=== PATIENT | female | born 1935 | race Caucasian/White ===

== ENCOUNTER 2017-06-23 14:33 | Inpatient (IN) | payer OTHER ==
[~2017-06-23] VITALS: Ht 152.4 cm; Wt 94.9 kg
[2017-06-23 14:42] VITALS: BP 115/66
[2017-06-23] MEDS ORDERED: FURO40TA4 PO (15:55)
[2017-06-23] MEDS ORDERED: METH5TAB6 PO (15:55)
[2017-06-23] MEDS ORDERED: OMEP20CA9 PO (15:55)
[2017-06-23] MEDS ORDERED: DILT120C80 PO (15:55)
[2017-06-23] MEDS ORDERED: APIX5TAB3 PO (15:55)
[2017-06-23] MEDS ORDERED: ATOR20TA PO (15:55)
[2017-06-23] MEDS ORDERED: GABA-586 PO (15:55)
[2017-06-23] MEDS ORDERED: SITA50TA PO (15:55)
[2017-06-23] MEDS ORDERED: METO25TA2 PO (15:55)
[2017-06-23] MEDS ORDERED: LEVO25TA4 PO (15:55)
[2017-06-23] MEDS ORDERED: LOSA100T6 PO (15:55)
[2017-06-23 16:20] LABS: BASO # 0.1 x10^3/uL (0.0-0.2); BASO % 1 % (0-3); EOS # 0.2 x10^3/uL (0.0-0.7); EOS % 4 % (0-3); HEMATOCRIT 34.4 % (36.0-47.0); HEMOGLOBIN 10.9 g/dL (12.0-15.5); LYMPH % 37 % (24-48); MEAN CORPUSCULAR HEMOGLOBIN 28 pg (25-35); MEAN CORPUSCULAR HGB CONC 32 g/dL (31-37); MEAN CORPUSCULAR VOLUME 88 fL (79-100); MONO # 0.6 x10^3/uL (0.0-1.1); MONO % 11 % (0-9); NEUT # 2.5 x10^3uL (1.8-7.7); NEUT % 47 % (31-73); PLATELET COUNT 206 x10^3/uL (140-400); RED BLOOD COUNT 3.91 x10^6/uL (3.50-5.40); RED CELL DISTRIBUTION WIDTH 15.2 % (11.5-14.5); WHITE BLOOD COUNT 5.4 x10^3/uL (4.0-11.0)
[2017-06-23] MEDS: IV NORMAL SALINE 1,000ML 1,000 ML IV SCH (16:25)
[2017-06-23 16:46] LABS: ALBUMIN 3.4 g/dL (3.4-5.0); CALCIUM 7.2 mg/dL (8.5-10.1); CREATININE 4.5 mg/dL (0.6-1.0); GFR 9.4; MAGNESIUM 2.1 mg/dL (1.8-2.4); POTASSIUM 3.5 mmol/L (3.5-5.1); TOTAL BILIRUBIN 0.3 mg/dL (0.2-1.0); TOTAL PROTEIN 6.8 g/dL (6.4-8.2)
[2017-06-23] MEDS ORDERED: DEXTROSE 50% 25 GM / 50ML DISP.SYRIN. IV PRN (17:00)
[2017-06-23] MEDS ORDERED: INSU100I13 SQ (19:20)
[2017-06-23 19:30] VITALS: BP 114/56
[2017-06-23] MEDS: GABAPENTIN 300 MG CAPSULE. PO SCH (20:41)
[2017-06-23] MEDS: APIXABAN 5 MG TABLET. PO SCH (20:43)
[2017-06-23] MEDS: INSULIN DETEMIR 300 UNITS/3 ML INSULN.PEN. SQ SCH (20:45)
[2017-06-23] MEDS ORDERED: APIXABAN 5 MG TABLET. PO SCH (21:00)
[2017-06-23 23:05] VITALS: BP 92/54
[2017-06-24] MEDS ORDERED: ACETAMINOPHEN 325 MG TABLET PO PRN (01:00)
[2017-06-24] MEDS: IV NORMAL SALINE 1,000ML 1,000 ML IV SCH ×3 (02:00→20:37)
[2017-06-24 05:13] VITALS: BP 118/56
[2017-06-24 06:11] LABS: ALBUMIN/GLOBULIN RATIO 0.9 (1.0-1.7); CALCIUM 6.8 mg/dL (8.5-10.1); CREATININE 3.9 mg/dL (0.6-1.0); GFR 11.1; POTASSIUM 4.1 mmol/L (3.5-5.1); TOTAL BILIRUBIN 0.3 mg/dL (0.2-1.0); TOTAL PROTEIN 6.2 g/dL (6.4-8.2)
[2017-06-24 06:12] LABS: BASO # 0.1 x10^3/uL (0.0-0.2); BASO % 2 % (0-3); EOS # 0.2 x10^3/uL (0.0-0.7); EOS % 4 % (0-3); HEMATOCRIT 31.7 % (36.0-47.0); LYMPH # 2.2 x10^3/uL (1.0-4.8); LYMPH % 42 % (24-48); MEAN CORPUSCULAR HEMOGLOBIN 28 pg (25-35); MEAN CORPUSCULAR HGB CONC 32 g/dL (31-37); MEAN CORPUSCULAR VOLUME 87 fL (79-100); MONO # 0.6 x10^3/uL (0.0-1.1); MONO % 12 % (0-9); NEUT # 2.1 x10^3uL (1.8-7.7); NEUT % 41 % (31-73); PLATELET COUNT 188 x10^3/uL (140-400); RED BLOOD COUNT 3.63 x10^6/uL (3.50-5.40); RED CELL DISTRIBUTION WIDTH 14.8 % (11.5-14.5); WHITE BLOOD COUNT 5.2 x10^3/uL (4.0-11.0)
[2017-06-24] MEDS ORDERED: LEVOTHYROXINE 25 MCG TABLET. PO SCH (07:00)
[2017-06-24] MEDS ORDERED: CALCIUM CARBONATE 500 MG TABLET PO SCH (09:00)
[2017-06-24] MEDS: GABAPENTIN 300 MG CAPSULE. PO SCH ×2 (09:52→20:37)
[2017-06-24] MEDS: APIXABAN 5 MG TABLET. PO SCH ×2 (09:53→20:38)
[2017-06-24] MEDS: LINAGLIPTIN 5 MG TABLET PO SCH (09:56)
[2017-06-24] MEDS: LOSARTAN 50 MG TABLET. PO SCH (09:57)
[2017-06-24] MEDS: ATORVASTATIN CALCIUM 20 MG TABLET PO SCH (09:57)
[2017-06-24] MEDS: PANTOPRAZOLE 40 MG TABLET. PO SCH (09:58)
[2017-06-24] MEDS: METOPROLOL SUCC 24HR ER 25 MG TAB.ER.24H. PO SCH (09:58)
--- NOTE | 2017-06-24 10:31 | RAD ---
Bilateral renal ultrasound 06/24/2017 Clinical indication: Renal failure. Comparison: None. Findings: Examination is significant limited due to body habitus. Right kidney measures 11.1 cm in length with diffuse cortical thinning. There is a simple appearing cyst from the superior pole of the right kidney measuring up to 3.2 cm. No right renal collecting system dilatation. Left kidney measures 10.7 cm in length with diffuse cortical thinning and no evidence for collecting system dilatation. The partially distended urinary bladder is unremarkable. Impression: 1. Limited examination due to body habitus. 2. Both kidneys present with bilateral cortical thinning. 3. No hydronephrosis. 4. Small simple appearing 3.2 cm right renal cyst.
[2017-06-24 10:56] VITALS: BP 143/74
--- NOTE | 2017-06-24 13:58 | PDOC1 ---
History of Present Illness Reason for Visit: Renal failure History of Present Illness Pt admitted directly from office yesterday due to acute renal failure. Her creatinine had gone from 1.5 on 05/30 to 2.25 on 06/20 to 4.5 on 06/23. She had been on double dose of diuretic since May. She denied vomiting, diarrhea, or decreased voiding. She was down 9 lbs and her SOA had resolved. She was being treated for diastolic heart failure. Today she is feeling well. States she is voiding frequently. Denies SOA or excessive fluid retention. Denies fever, CP, abd pain, n/v, diarrhea, rash, or dizziness. Denies tetany or confusion. Chief Complaint: Renal failure Allergies: Coded Allergies: Influenza Virus Vaccines (Verified Allergy, Unknown, 06/23/17) Past Medical History Cardiac: AFIB, CHF (diastolic, chronic), HTN, hyperipidemia Pulmonary: Other (Pulmonary hypertension) Heme/Onc: Anemia NOS Musculoskeletal: Osteoarthritis Renal/: Chronic renal insuff Endocrine: Hyperthyroidism (Multinodular goiter, dx 2014, on methimazole) Past Surgical History: No pertinent history Family History: No pertinent hx Past Social History Smoke: No Alcohol: none Drugs: None Lives: with Family Review of Systems Review Of Systems Fourteen system , review of systems has been reviewed. See HPI for pertinent positives and negative responses, other carrillo all other systems are negative, non pertinent or non contributory Allergies: Coded Allergies: Influenza Virus Vaccines (Verified Allergy, Unknown, 06/23/17) Medications Current Medications Sodium Chloride 1,000 ml @ 100 mls/hr Q10H IV Last administered on 06/24/17at 11:45; Start 06/23/17 at 15:45 Apixaban (Eliquis) 5 mg BID PO ; Start 06/23/17 at 21:00; Stop 06/23/17 at 21:00 ; Status DC Atorvastatin Calcium (Lipitor) 40 mg DAILY PO Last administered on 06/24/17at 09 :57; Start 06/24/17 at 09:00 Diltiazem HCl (Cardizem 24hr Cd) 120 mg DAILY PO Last administered on at 09:57; Start 06/24/17 at 09:00 Gabapentin (Neurontin) 300 mg BID PO Last administered on 06/24/17at 09:52; Start 06/23/17 at 21:00 Levothyroxine Sodium (Synthroid) 25 mcg DAILY07 PO ; Start 06/24/17 at 07:00; Stop 06/24/17 at 07:00; Status DC Methimazole (Tapazole) 5 mg DAILY PO Last administered on 06/24/17at 09:53; Start 06/24/17 at 09:00 Metoprolol Succinate (Toprol Xl) 25 mg DAILY PO Last administered on 06/24/17at 09:58; Start 06/24/17 at 09:00 Losartan Potassium (Cozaar) 100 mg DAILY PO Last administered on 06/24/17at 09: 57; Start 06/24/17 at 09:00 Pantoprazole Sodium (Protonix) 40 mg DAILY PO Last administered on 06/24/17at 09 :58; Start 06/24/17 at 09:00 Linagliptin (Tradjenta) 5 mg DAILY PO Last administered on 06/24/17at 09:56; Start 06/24/17 at 09:00 Dextrose 12.5 gm PRN Q15MIN PRN IV SEE COMMENTS; Start 06/23/17 at 17:00 Insulin Detemir (Levemir) 12 units QHS SQ Last administered on 06/23/17at 20:45 ; Start 06/23/17 at 21:00 Apixaban (Eliquis) 2.5 mg BID PO Last administered on 06/24/17at 09:53; Start at 21:00 Acetaminophen (Tylenol) 650 mg PRN Q4HRS PRN PO PAIN; Start 06/24/17 at 01:00 Calcium Carbonate/ Glycine (Oscal) 500 mg TIDAFTMEAL PO Last administered on at 09:58; Start 06/24/17 at 09:00 Active Scripts Active Reported Lantus Solostar (Insulin Glargine,Hum.rec.anlog) 100 Unit/1 Ml Insuln.pen 12 Unit SQ QHS Toprol Xl (Metoprolol Succinate) 25 Mg Tab.er.24h 1 Tab PO DAILY Omeprazole 20 Mg Capsule.dr 1 Cap PO DAILY Methimazole 5 Mg Tablet 5 Mg PO DAILY Januvia (Sitagliptin Phosphate) 50 Mg Tablet 1 Tab PO DAILY Furosemide 40 Mg Tablet 1 Tab PO DAILY Levothyroxine Sodium 25 Mcg Tablet 1 Tab PO DAILY Lipitor (Atorvastatin Calcium) 20 Mg Tablet 2 Tab PO DAILY Losartan Potassium 100 Mg Tablet 100 Mg PO DAILY Eliquis (Apixaban) 5 Mg Tablet 5 Mg PO BID Diltiazem 24HR Cd (Diltiazem Hcl) 120 Mg Cap.er.24h 1 Cap PO DAILY Gabapentin 300 Mg Capsule 300 Mg PO BID Exam Vital Signs Vital Signs Date Time Temp Pulse Resp B/P (MAP) Pulse Ox O2 Delivery O2 Flow Rate FiO2 06/24/17 10:56 97.8 68 16 143/74 (97) 100 06/24/17 08:00 Nasal Cannula 2.0 General Appearance: Alert, Oriented X3, Cooperative, No acute distress HEENT: Atraumatic, PERRLA, EOMI, Mucous membr. moist/pink, Other (No JVD, no LAD, no obvious thyroid nodules) Respiratory: Clear to auscultation, Normal air movement Heart: Other (Irregularly irregular, no murmur) Abdominal: Soft, No tenderness, No hepatospenomegaly, No masses Extremities: Normal pulses, Other (Trace BLE edema) Skin: No rashes, No breakdown Neuro: Normal speech, Strength at 5/5 X4 ext, Normal tone, Sensation intact, Cranial nerves 3-12 NL, Reflexes 2+ Psych/Mental Status: Mental status NL, Mood NL Assessment/Plan Assessment/Plan 1. Acute on chronic renal failure: Likely ATN due to overdiuresis. Baseline creat 1.5 (stage 3 CKD). Will address hyperphosphatemia, hypocalcemia. Recheck BMP later today and in AM. Continue IVF. Will have to balance renal function with fluid retention. Would like to get creat to 2.5 at least by discharge, plan for tomorrow if all goes well. Urine sodium/creat pending. 2. Atrial fibrillation: Pt on Eliquis for stroke prevention. I decreased the dose to 2.5 mg daily due to pt's renal function and age. 3. HTN: Continue home medications. 4. DM2: Continue home medications. 5. DVT prohp: Pt already on Eliquis. 6. Hyperthyroidism: T4 is normal. Continue methimazole. 7. Anemia: Chronic, stable. Continue to monitor. COURSE Allergies Coded Allergies Type Severity Reaction Last Updated Verified Influenza Virus Vaccines Allergy Unknown 06/23/17 Yes Laboratory Tests Test 1/12/18 16:02 06/23/17 16:04 06/23/17 16:50 06/23/17 19:52 Free Thyroxine 0.86 ng/dL (0.76-1.46) White Blood Count 5.4 x10^3/uL (4.0-11.0) Red Blood Count 3.91 x10^6/uL (3.50-5.40) Hemoglobin 10.9 g/dL (12.0-15.5) Hematocrit 34.4 % (36.0-47.0) Mean Corpuscular Volume 88 fL (79-100) Mean Corpuscular Hemoglobin 28 pg (25-35) Mean Corpuscular Hemoglobin Concent 32 g/dL (31-37) Red Cell Distribution Width 15.2 % (11.5-14.5) Platelet Count 206 x10^3/uL (140-400) Neutrophils (%) (Auto) 47 % (31-73) Lymphocytes (%) (Auto) 37 % (24-48) Monocytes (%) (Auto) 11 % (0-9) Eosinophils (%) (Auto) 4 % (0-3) Basophils (%) (Auto) 1 % (0-3) Neutrophils # (Auto) 2.5 x10^3uL (1.8-7.7) Lymphocytes # (Auto) 2.0 x10^3/uL (1.0-4.8) Monocytes # (Auto) 0.6 x10^3/uL (0.0-1.1) Eosinophils # (Auto) 0.2 x10^3/uL (0.0-0.7) Basophils # (Auto) 0.1 x10^3/uL (0.0-0.2) Sodium Level 140 mmol/L (136-145) Potassium Level 3.5 mmol/L (3.5-5.1) Chloride Level 104 mmol/L (98-107) Carbon Dioxide Level 24 mmol/L (21-32) Anion Gap 12 (6-14) Blood Urea Nitrogen 48 mg/dL (7-20) Creatinine 4.5 mg/dL (0.6-1.0) Estimated GFR (Cockcroft-Gault) 9.4 BUN/Creatinine Ratio 11 (6-20) Glucose Level 180 mg/dL (70-99) Calcium Level 7.2 mg/dL (8.5-10.1) Magnesium Level 2.1 mg/dL (1.8-2.4) Total Bilirubin 0.3 mg/dL (0.2-1.0) Aspartate Amino Transf (AST/SGOT) 27 U/L (15-37) Alanine Aminotransferase (ALT/SGPT) 31 U/L (14-59) Alkaline Phosphatase 72 U/L (46-116) Total Protein 6.8 g/dL (6.4-8.2) Albumin 3.4 g/dL (3.4-5.0) Albumin/Globulin Ratio 1.0 (1.0-1.7) Glucose (Fingerstick) 120 mg/dL (70-99) 131 mg/dL (70-99) Test 06/24/17 05:40 06/24/17 07:59 White Blood Count 5.2 x10^3/uL (4.0-11.0) Red Blood Count 3.63 x10^6/uL (3.50-5.40) Hemoglobin 10.0 g/dL (12.0-15.5) Hematocrit 31.7 % (36.0-47.0) Mean Corpuscular Volume 87 fL (79-100) Mean Corpuscular Hemoglobin 28 pg (25-35) Mean Corpuscular Hemoglobin Concent 32 g/dL (31-37) Red Cell Distribution Width 14.8 % (11.5-14.5) Platelet Count 188 x10^3/uL (140-400) Neutrophils (%) (Auto) 41 % (31-73) Lymphocytes (%) (Auto) 42 % (24-48) Monocytes (%) (Auto) 12 % (0-9) Eosinophils (%) (Auto) 4 % (0-3) Basophils (%) (Auto) 2 % (0-3) Neutrophils # (Auto) 2.1 x10^3uL (1.8-7.7) Lymphocytes # (Auto) 2.2 x10^3/uL (1.0-4.8) Monocytes # (Auto) 0.6 x10^3/uL (0.0-1.1) Eosinophils # (Auto) 0.2 x10^3/uL (0.0-0.7) Basophils # (Auto) 0.1 x10^3/uL (0.0-0.2) Sodium Level 141 mmol/L (136-145) Potassium Level 4.1 mmol/L (3.5-5.1) Chloride Level 107 mmol/L (98-107) Carbon Dioxide Level 23 mmol/L (21-32) Anion Gap 11 (6-14) Blood Urea Nitrogen 45 mg/dL (7-20) Creatinine 3.9 mg/dL (0.6-1.0) Estimated GFR (Cockcroft-Gault) 11.1 BUN/Creatinine Ratio 12 (6-20) Glucose Level 110 mg/dL (70-99) Calcium Level 6.8 mg/dL (8.5-10.1) Magnesium Level 2.0 mg/dL (1.8-2.4) Total Bilirubin 0.3 mg/dL (0.2-1.0) Aspartate Amino Transf (AST/SGOT) 26 U/L (15-37) Alanine Aminotransferase (ALT/SGPT) 26 U/L (14-59) Alkaline Phosphatase 61 U/L (46-116) Total Protein 6.2 g/dL (6.4-8.2) Albumin 3.0 g/dL (3.4-5.0) Albumin/Globulin Ratio 0.9 (1.0-1.7) Ionized Calcium 0.99 mmol/L (1.13-1.32) Phosphorus Level 5.1 mg/dL (2.6-4.7) Current Medications Medications (Trade) Dose Ordered Sig/Ike Route PRN Reason Start Time Stop Time Status Last Admin Dose Admin Sodium Chloride 1,000 ml @ 100 mls/hr Q10H IV 06/23/17 15:45 06/24/17 11:45 Apixaban (Eliquis) 5 mg BID PO 06/23/17 21:00 06/23/17 21:00 DC Atorvastatin Calcium (Lipitor) 40 mg DAILY PO 06/24/17 09:00 06/24/17 09:57 Diltiazem HCl (Cardizem 24hr Cd) 120 mg DAILY PO 06/24/17 09:00 06/24/17 09:57 Gabapentin (Neurontin) 300 mg BID PO 06/23/17 21:00 06/24/17 09:52 Levothyroxine Sodium (Synthroid) 25 mcg DAILY07 PO 06/24/17 07:00 06/24/17 07:00 DC Methimazole (Tapazole) 5 mg DAILY PO 06/24/17 09:00 06/24/17 09:53 Metoprolol Succinate (Toprol Xl) 25 mg DAILY PO 06/24/17 09:00 06/24/17 09:58 Losartan Potassium (Cozaar) 100 mg DAILY PO 06/24/17 09:00 06/24/17 09:57 Pantoprazole Sodium (Protonix) 40 mg DAILY PO 06/24/17 09:00 06/24/17 09:58 Linagliptin (Tradjenta) 5 mg DAILY PO 06/24/17 09:00 06/24/17 09:56 Dextrose 12.5 gm PRN Q15MIN PRN IV SEE COMMENTS 06/23/17 17:00 Insulin Detemir (Levemir) 12 units QHS SQ 06/23/17 21:00 06/23/17 20:45 Apixaban (Eliquis) 2.5 mg BID PO 06/23/17 21:00 06/24/17 09:53 Acetaminophen (Tylenol) 650 mg PRN Q4HRS PRN PO PAIN 06/24/17 01:00 Calcium Carbonate/ Glycine (Oscal) 500 mg TIDAFTMEAL PO 06/24/17 09:00 06/24/17 09:58 I & O 06/24/17 00:00 Intake Total 380 ml Output Total 300 ml Balance 80 ml Vital Signs Date Time Temp Pulse Resp B/P (MAP) Pulse Ox O2 Delivery O2 Flow Rate FiO2 06/24/17 10:56 97.8 68 16 143/74 (97) 100 06/24/17 08:00 Nasal Cannula 2.0 Bilateral renal ultrasound 06/24/2017 Clinical indication: Renal failure. Comparison: None. Findings: Examination is significant limited due to body habitus. Right kidney measures 11.1 cm in length with diffuse cortical thinning. There is a simple appearing cyst from the superior pole of the right kidney measuring up to 3.2 cm. No right renal collecting system dilatation. Left kidney measures 10.7 cm in length with diffuse cortical thinning and no evidence for collecting system dilatation. The partially distended urinary bladder is unremarkable. Impression: 1. Limited examination due to body habitus. 2. Both kidneys present with bilateral cortical thinning. 3. No hydronephrosis. 4. Small simple appearing 3.2 cm right renal cyst. ALLEN KAMARA MD Jun 24, 2017 13:58
[2017-06-24 15:08] LABS: CALCIUM 7.1 mg/dL (8.5-10.1); CREATININE 3.4 mg/dL (0.6-1.0); POTASSIUM 4.4 mmol/L (3.5-5.1)
[2017-06-24 15:29] VITALS: BP 117/54
[2017-06-24] MEDS: CALCIUM ACETATE 667 MG CAPSULE PO SCH (18:41)
--- NOTE | 2017-06-24 18:55 | EKG ---
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
[2017-06-24 19:21] VITALS: BP 116/56
[2017-06-24] MEDS: INSULIN DETEMIR 300 UNITS/3 ML INSULN.PEN. SQ SCH (20:47)
[2017-06-24 22:29] VITALS: BP 146/54
[2017-06-25 05:40] VITALS: BP 147/63
[2017-06-25 06:53] LABS: BASO # 0.1 x10^3/uL (0.0-0.2); BASO % 1 % (0-3); EOS # 0.2 x10^3/uL (0.0-0.7); EOS % 4 % (0-3); HEMATOCRIT 33.4 % (36.0-47.0); HEMOGLOBIN 10.7 g/dL (12.0-15.5); LYMPH % 39 % (24-48); MEAN CORPUSCULAR HEMOGLOBIN 28 pg (25-35); MEAN CORPUSCULAR HGB CONC 32 g/dL (31-37); MEAN CORPUSCULAR VOLUME 87 fL (79-100); MONO # 0.5 x10^3/uL (0.0-1.1); MONO % 11 % (0-9); NEUT # 2.3 x10^3uL (1.8-7.7); NEUT % 45 % (31-73); PLATELET COUNT 199 x10^3/uL (140-400); RED BLOOD COUNT 3.84 x10^6/uL (3.50-5.40); RED CELL DISTRIBUTION WIDTH 15.2 % (11.5-14.5)
[2017-06-25 07:00] LABS: CALCIUM 7.8 mg/dL (8.5-10.1); CREATININE 2.9 mg/dL (0.6-1.0); GFR 15.6
[2017-06-25] MEDS: ATORVASTATIN CALCIUM 20 MG TABLET PO SCH (07:58)
[2017-06-25] MEDS: METOPROLOL SUCC 24HR ER 25 MG TAB.ER.24H. PO SCH (07:58)
[2017-06-25] MEDS: GABAPENTIN 300 MG CAPSULE. PO SCH (07:58)
[2017-06-25 07:59] VITALS: BP 147/63
[2017-06-25] MEDS: LOSARTAN 50 MG TABLET. PO SCH (07:59)
[2017-06-25] MEDS: PANTOPRAZOLE 40 MG TABLET. PO SCH (07:59)
[2017-06-25] MEDS: LINAGLIPTIN 5 MG TABLET PO SCH (07:59)
[2017-06-25] MEDS: APIXABAN 5 MG TABLET. PO SCH (08:00)
[2017-06-25] MEDS: CALCIUM ACETATE 667 MG CAPSULE PO SCH ×2 (08:00→12:13)
[2017-06-25] MEDS: IV NORMAL SALINE 1,000ML 1,000 ML IV SCH (12:13)
[2017-06-25] MEDS ORDERED: APIX5TAB3 PO (14:37)
--- NOTE | 2017-06-25 14:41 | DISCH ---
DISCHARGE INSTRUCTIONS-DC Condition on Discharge Condition on Discharge: Stable Problems: Activity after Discharge Activity Instructions for Disc: Activity as tolerated Checks after Discharge Checks after discharge: Check blood press - daily, Weigh Yourself Daily Contacting the DRIsaiah after DC Call your doctor for: If your condition worsens Follow-Up Follow up with: Dr. Kamara next week ALLEN KAMARA MD Jun 25, 2017 14:41
--- NOTE | 2017-06-25 14:49 | PDOC3 ---
Discharge Summary Discharge Summary Date of Admission Date of Admission: Jun 23, 2017 at 14:33 Admitting Diagnosis Acute on chronic renal failure due to ATN and hypovolemia DM2 HTN Pulmonary hypertension Diastolic HF, chronic, stable Hyperthyroidism Date of Discharge: Jun 25, 2017 Discharge Diagnosis Acute on chronic renal failure due to ATN and hypovolemia DM2 HTN Pulmonary hypertension Diastolic HF, chronic, stable Hyperthyroidism Laboratory Findings Laboratory Tests Test 06/23/17 16:02 06/23/17 16:04 06/23/17 16:50 06/23/17 19:52 Free Thyroxine 0.86 ng/dL (0.76-1.46) White Blood Count 5.4 x10^3/uL (4.0-11.0) Red Blood Count 3.91 x10^6/uL (3.50-5.40) Hemoglobin 10.9 g/dL (12.0-15.5) Hematocrit 34.4 % (36.0-47.0) Mean Corpuscular Volume 88 fL (79-100) Mean Corpuscular Hemoglobin 28 pg (25-35) Mean Corpuscular Hemoglobin Concent 32 g/dL (31-37) Red Cell Distribution Width 15.2 % (11.5-14.5) Platelet Count 206 x10^3/uL (140-400) Neutrophils (%) (Auto) 47 % (31-73) Lymphocytes (%) (Auto) 37 % (24-48) Monocytes (%) (Auto) 11 % (0-9) Eosinophils (%) (Auto) 4 % (0-3) Basophils (%) (Auto) 1 % (0-3) Neutrophils # (Auto) 2.5 x10^3uL (1.8-7.7) Lymphocytes # (Auto) 2.0 x10^3/uL (1.0-4.8) Monocytes # (Auto) 0.6 x10^3/uL (0.0-1.1) Eosinophils # (Auto) 0.2 x10^3/uL (0.0-0.7) Basophils # (Auto) 0.1 x10^3/uL (0.0-0.2) Sodium Level 140 mmol/L (136-145) Potassium Level 3.5 mmol/L (3.5-5.1) Chloride Level 104 mmol/L (98-107) Carbon Dioxide Level 24 mmol/L (21-32) Anion Gap 12 (6-14) Blood Urea Nitrogen 48 mg/dL (7-20) Creatinine 4.5 mg/dL (0.6-1.0) Estimated GFR (Cockcroft-Gault) 9.4 BUN/Creatinine Ratio 11 (6-20) Glucose Level 180 mg/dL (70-99) Calcium Level 7.2 mg/dL (8.5-10.1) Magnesium Level 2.1 mg/dL (1.8-2.4) Total Bilirubin 0.3 mg/dL (0.2-1.0) Aspartate Amino Transf (AST/SGOT) 27 U/L (15-37) Alanine Aminotransferase (ALT/SGPT) 31 U/L (14-59) Alkaline Phosphatase 72 U/L (46-116) Total Protein 6.8 g/dL (6.4-8.2) Albumin 3.4 g/dL (3.4-5.0) Albumin/Globulin Ratio 1.0 (1.0-1.7) Glucose (Fingerstick) 120 mg/dL (70-99) 131 mg/dL (70-99) Test 06/23/17 22:19 06/24/17 05:40 06/24/17 07:49 06/24/17 07:59 Urine Random Creatinine 64.0 mg/dL (Not Estab.) Urine Random Sodium <60 mmol/L (Not Estab.) White Blood Count 5.2 x10^3/uL (4.0-11.0) Red Blood Count 3.63 x10^6/uL (3.50-5.40) Hemoglobin 10.0 g/dL (12.0-15.5) Hematocrit 31.7 % (36.0-47.0) Mean Corpuscular Volume 87 fL (79-100) Mean Corpuscular Hemoglobin 28 pg (25-35) Mean Corpuscular Hemoglobin Concent 32 g/dL (31-37) Red Cell Distribution Width 14.8 % (11.5-14.5) Platelet Count 188 x10^3/uL (140-400) Neutrophils (%) (Auto) 41 % (31-73) Lymphocytes (%) (Auto) 42 % (24-48) Monocytes (%) (Auto) 12 % (0-9) Eosinophils (%) (Auto) 4 % (0-3) Basophils (%) (Auto) 2 % (0-3) Neutrophils # (Auto) 2.1 x10^3uL (1.8-7.7) Lymphocytes # (Auto) 2.2 x10^3/uL (1.0-4.8) Monocytes # (Auto) 0.6 x10^3/uL (0.0-1.1) Eosinophils # (Auto) 0.2 x10^3/uL (0.0-0.7) Basophils # (Auto) 0.1 x10^3/uL (0.0-0.2) Sodium Level 141 mmol/L (136-145) Potassium Level 4.1 mmol/L (3.5-5.1) Chloride Level 107 mmol/L (98-107) Carbon Dioxide Level 23 mmol/L (21-32) Anion Gap 11 (6-14) Blood Urea Nitrogen 45 mg/dL (7-20) Creatinine 3.9 mg/dL (0.6-1.0) Estimated GFR (Cockcroft-Gault) 11.1 BUN/Creatinine Ratio 12 (6-20) Glucose Level 110 mg/dL (70-99) Calcium Level 6.8 mg/dL (8.5-10.1) Magnesium Level 2.0 mg/dL (1.8-2.4) Total Bilirubin 0.3 mg/dL (0.2-1.0) Aspartate Amino Transf (AST/SGOT) 26 U/L (15-37) Alanine Aminotransferase (ALT/SGPT) 26 U/L (14-59) Alkaline Phosphatase 61 U/L (46-116) Total Protein 6.2 g/dL (6.4-8.2) Albumin 3.0 g/dL (3.4-5.0) Albumin/Globulin Ratio 0.9 (1.0-1.7) Glucose (Fingerstick) 94 mg/dL (70-99) Ionized Calcium 0.99 mmol/L (1.13-1.32) Phosphorus Level 5.1 mg/dL (2.6-4.7) Test 06/24/17 11:24 06/24/17 14:55 06/24/17 17:08 06/24/17 19:28 Glucose (Fingerstick) 111 mg/dL (70-99) 99 mg/dL (70-99) 124 mg/dL (70-99) Sodium Level 141 mmol/L (136-145) Potassium Level 4.4 mmol/L (3.5-5.1) Chloride Level 108 mmol/L (98-107) Carbon Dioxide Level 24 mmol/L (21-32) Anion Gap 9 (6-14) Blood Urea Nitrogen 42 mg/dL (7-20) Creatinine 3.4 mg/dL (0.6-1.0) Estimated GFR (Cockcroft-Gault) 13.0 Glucose Level 198 mg/dL (70-99) Calcium Level 7.1 mg/dL (8.5-10.1) Test 06/25/17 06:24 06/25/17 07:49 06/25/17 11:40 White Blood Count 5.0 x10^3/uL (4.0-11.0) Red Blood Count 3.84 x10^6/uL (3.50-5.40) Hemoglobin 10.7 g/dL (12.0-15.5) Hematocrit 33.4 % (36.0-47.0) Mean Corpuscular Volume 87 fL (79-100) Mean Corpuscular Hemoglobin 28 pg (25-35) Mean Corpuscular Hemoglobin Concent 32 g/dL (31-37) Red Cell Distribution Width 15.2 % (11.5-14.5) Platelet Count 199 x10^3/uL (140-400) Neutrophils (%) (Auto) 45 % (31-73) Lymphocytes (%) (Auto) 39 % (24-48) Monocytes (%) (Auto) 11 % (0-9) Eosinophils (%) (Auto) 4 % (0-3) Basophils (%) (Auto) 1 % (0-3) Neutrophils # (Auto) 2.3 x10^3uL (1.8-7.7) Lymphocytes # (Auto) 2.0 x10^3/uL (1.0-4.8) Monocytes # (Auto) 0.5 x10^3/uL (0.0-1.1) Eosinophils # (Auto) 0.2 x10^3/uL (0.0-0.7) Basophils # (Auto) 0.1 x10^3/uL (0.0-0.2) Sodium Level 144 mmol/L (136-145) Potassium Level 4.0 mmol/L (3.5-5.1) Chloride Level 110 mmol/L (98-107) Carbon Dioxide Level 24 mmol/L (21-32) Anion Gap 10 (6-14) Blood Urea Nitrogen 39 mg/dL (7-20) Creatinine 2.9 mg/dL (0.6-1.0) Estimated GFR (Cockcroft-Gault) 15.6 Glucose Level 107 mg/dL (70-99) Calcium Level 7.8 mg/dL (8.5-10.1) Glucose (Fingerstick) 108 mg/dL (70-99) 199 mg/dL (70-99) Hospital Course Pt was admitted directly from my office due to acute on chronic renal failure. This was thought to be secondary to diuresis w/ Lasix. Her baseline creat is 1.5. Her admission creat was 4.5. Her electrolytes improved with improved renal function. Phos was 5.1. Mag normal. K+ normal. She received about 2 liters of fluid (NS) and creat was down to 2.9 as of today> Urine studies suggested a pre-renal cause as her FeNa was very low. She continued to have excellent voiding and no new fluid retention or SOA. I am going to discharge her with the plan to stay off Lasix and continue to hydrate by mouth. We will get a f/u BMp this week in the hospital. She may ultimately need to see nephrology. Her renal ultrasound showed some cortical thinning but no sign of obstruction. Exam: A&O x3 NAD No JVD CV: IRREG, no murmur Chest: CTAB Ext: Minimal LE edema Abd: SOft, NTTP Condition at Discharge: Stable Home Meds Reported Medications Insulin Glargine,Hum.rec.anlog (LANTUS SOLOSTAR) 100 Unit/1 Ml Insuln.pen, 12 UNIT SQ QHS, #15 ML 3 Refills 06/23/17 Metoprolol Succinate (TOPROL XL) 25 Mg Tab.er.24h, 1 TAB PO DAILY, #30 TAB 5 Refills 06/23/17 Omeprazole (OMEPRAZOLE) 20 Mg Capsule.dr, 1 CAP PO DAILY, #30 CAP 5 Refills 06/23/17 Methimazole (METHIMAZOLE) 5 Mg Tablet, 5 MG PO DAILY, TAB 06/23/17 Sitagliptin Phosphate (JANUVIA) 50 Mg Tablet, 1 TAB PO DAILY, #30 TAB 5 Refills 06/23/17 Furosemide (FUROSEMIDE) 40 Mg Tablet, 1 TAB PO DAILY, #30 TAB 5 Refills 06/23/17 Levothyroxine Sodium (LEVOTHYROXINE SODIUM) 25 Mcg Tablet, 1 TAB PO DAILY, #30 TAB 5 Refills 06/23/17 Atorvastatin Calcium (LIPITOR) 20 Mg Tablet, 2 TAB PO DAILY, #90 TAB 1 Refill 06/23/17 Losartan Potassium (LOSARTAN POTASSIUM) 100 Mg Tablet, 100 MG PO DAILY, TAB 06/23/17 Apixaban (ELIQUIS) 5 Mg Tablet, 5 MG PO BID, TAB 06/23/17 Diltiazem Hcl (DILTIAZEM 24HR CD) 120 Mg Cap.er.24h, 1 CAP PO DAILY, #90 CAP 1 Refill 06/23/17 Gabapentin (GABAPENTIN) 300 Mg Capsule, 300 MG PO BID, CAP 06/23/17 Inpatient Meds Current Medications Sodium Chloride 1,000 ml @ 70 mls/hr [id number] IV Last administered on at 12:13; Start 06/23/17 at 15:45 Apixaban (Eliquis) 5 mg BID PO ; Start 06/23/17 at 21:00; Stop 06/23/17 at 21:00 ; Status DC Atorvastatin Calcium (Lipitor) 40 mg DAILY PO Last administered on 06/25/17at 07 :58; Start 06/24/17 at 09:00 Diltiazem HCl (Cardizem 24hr Cd) 120 mg DAILY PO Last administered on at 07:59; Start 06/24/17 at 09:00 Gabapentin (Neurontin) 300 mg BID PO Last administered on 06/25/17at 07:58; Start 06/23/17 at 21:00 Levothyroxine Sodium (Synthroid) 25 mcg DAILY07 PO ; Start 06/24/17 at 07:00; Stop 06/24/17 at 07:00; Status DC Methimazole (Tapazole) 5 mg DAILY PO Last administered on 06/25/17at 08:00; Start 06/24/17 at 09:00 Metoprolol Succinate (Toprol Xl) 25 mg DAILY PO Last administered on 06/25/17at 07:58; Start 06/24/17 at 09:00 Losartan Potassium (Cozaar) 100 mg DAILY PO Last administered on 06/25/17at 07: 59; Start 06/24/17 at 09:00 Pantoprazole Sodium (Protonix) 40 mg DAILY PO Last administered on 06/25/17at 07 :59; Start 06/24/17 at 09:00 Linagliptin (Tradjenta) 5 mg DAILY PO Last administered on 06/25/17at 07:59; Start 06/24/17 at 09:00 Dextrose 12.5 gm PRN Q15MIN PRN IV SEE COMMENTS; Start 06/23/17 at 17:00 Insulin Detemir (Levemir) 12 units QHS SQ Last administered on 06/24/17at 20:47 ; Start 06/23/17 at 21:00 Apixaban (Eliquis) 2.5 mg BID PO Last administered on 06/25/17at 08:00; Start at 21:00 Acetaminophen (Tylenol) 650 mg PRN Q4HRS PRN PO PAIN Last administered on at 04:03; Start 06/24/17 at 01:00 Calcium Carbonate/ Glycine (Oscal) 500 mg TIDAFTMEAL PO Last administered on at 09:58; Start 06/24/17 at 09:00; Stop 06/24/17 at 14:01; Status DC Calcium Acetate (Phoslo) 1,334 mg TIDWMEALS PO Last administered on 06/25/17at 12:13; Start 06/24/17 at 17:00 Active Scripts Active Reported Lantus Solostar (Insulin Glargine,Hum.rec.anlog) 100 Unit/1 Ml Insuln.pen 12 Unit SQ QHS Toprol Xl (Metoprolol Succinate) 25 Mg Tab.er.24h 1 Tab PO DAILY Omeprazole 20 Mg Capsule.dr 1 Cap PO DAILY Methimazole 5 Mg Tablet 5 Mg PO DAILY Januvia (Sitagliptin Phosphate) 50 Mg Tablet 1 Tab PO DAILY Furosemide 40 Mg Tablet 1 Tab PO DAILY Levothyroxine Sodium 25 Mcg Tablet 1 Tab PO DAILY Lipitor (Atorvastatin Calcium) 20 Mg Tablet 2 Tab PO DAILY Losartan Potassium 100 Mg Tablet 100 Mg PO DAILY Eliquis (Apixaban) 5 Mg Tablet 5 Mg PO BID Diltiazem 24HR Cd (Diltiazem Hcl) 120 Mg Cap.er.24h 1 Cap PO DAILY Gabapentin 300 Mg Capsule 300 Mg PO BID Activity: as tolerated Diet: 2 gr sodium, Cardiac, Consistent Carbohydrate Follow-up Plan F/u with Dr. Kamara next week, will need BMP ALLEN KAMARA MD Jun 25, 2017 14:49
[2017-06-25 23:10] LABS: CREATININE PTH 3.52 mg/dL (0.57-1.00); PTH INTACT 584 pg/mL (15-65)
== END 2017-06-25 15:33 | disposition home or self-care (01) | DRG 291 ==
LOC: 1 SOUTH 14:33
PROVIDERS: ADMIT Family Medicine; ATTEND Family Medicine
DX: I13.0 Hypertensive heart and chronic kidney disease with heart failure and stage 1 through stage 4 chronic kidney disease, or unspecified chronic kidney disease (principal); N17.0 Acute kidney failure with tubular necrosis; E11.22 Type 2 diabetes mellitus with diabetic chronic kidney disease; I27.20 Pulmonary hypertension, unspecified; E83.39 Other disorders of phosphorus metabolism; E83.51 Hypocalcemia; E86.1 Hypovolemia; I48.91 Unspecified atrial fibrillation; I50.32 Chronic diastolic (congestive) heart failure; D64.9 Anemia, unspecified; E78.5 Hyperlipidemia, unspecified; M19.90 Unspecified osteoarthritis, unspecified site; E05.90 Thyrotoxicosis, unspecified without thyrotoxic crisis or storm; N18.3 Chronic kidney disease, stage 3 (moderate); Z79.01 Long term (current) use of anticoagulants; Z88.7 Allergy status to serum and vaccine
CPT/HCPCS: 36415; 76770; 80048; 80053; 82310; 82570; 82947; 83735; 83970; 84100; 84300; 84439; 85025; 93005; J1815; J7030

== ENCOUNTER → 2021-01-14 | Outpatient (CLI) | payer MEDICARE, OTHER ==
[~2021-01-14] MED LIST: APIX5TAB3 PO; ATOR20TA PO; DILT120C99 PO; FURO40TA4 PO; GABA-586 PO; INSU100I13 SQ; LEVO25TA4 PO; LOSA100T14 PO; METH5TAB6 PO; METO25TA2 PO; OMEP20CA16 PO; SITA50TA PO
--- NOTE | 2021-01-14 09:42 | RAD ---
EXAM: Chest, 2 views. HISTORY: COPD. COMPARISON: None. FINDINGS: 2 views of the chest are obtained. There is right perihilar linear atelectasis or scarring. There is no infiltrate, pleural effusion or pneumothorax. There is is prominent cardiac silhouette a nd cardiac pacemaker with leads in expected position. There are dorsal column stimulator leads overly ing the mid thoracic spine. IMPRESSION: 1. No acute pulmonary finding. 2. Right perihilar linear atelectasis or scarring. Electronically signed by: Lea Lombardi MD (01/14/2021 9:39 AM) [id number]
== END ==
LOC: RAD 09:14
PROVIDERS: ATTEND Family Medicine
DX: J44.9 Chronic obstructive pulmonary disease, unspecified (principal)
CPT/HCPCS: 71046

== ENCOUNTER 2021-06-24 17:11 | Emergency (ER) | payer MEDICARE, OTHER ==
[~2021-06-24] VITALS: Ht 152.4 cm; Wt 94.8 kg
[~2021-06-24 17:11] MED LIST changes: +METH5TAB30 PO; -METH5TAB6 PO
--- NOTE | 2021-06-24 19:14 | PHYS DOC ---
Past History Past Medical History: A-Fib, High Cholesterol, Hypertension, Renal Disease Additional Past Medical Histor: PULMANARY HTN (SUMIT BECERRA APRN) Past Surgical History: Hysterectomy, Knee Replacement, Pacemaker, Other Additional Past Surgical Histo: MULTIPLE BACK SURGERY; SKIN MOLE REMOVED FROM ARM AND CHEEK (SUMIT BECERRA APRN) Smoking: Non-smoker Alcohol Use: None Drug Use: None (SUMIT BECERRA APRN) General Adult EDM: Chief Complaint: ABDOMINAL PAIN HPI: HPI: Patient is an 85-year-old female that presents today with upper abdominal pain. Patient states pain started this morning she has progressively gotten worse throughout the day, she denies nausea and vomiting at this time. Patient states that she does not have a gallbladder is been gone for years she said. Patient denies chest pain, shortness of breath, fever and chills, diarrhea, dysuria. Patient states nothing makes the pain better or worse. 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 (SUMIT BECERRA APRN) Review of Systems: Review of Systems: Constitutional: Denies fever or chills Eyes: Denies change in visual acuity HENT: Denies nasal congestion or sore throat Respiratory: Denies cough or shortness of breath Cardiovascular: Denies chest pain or edema GI: Epigastric pain denies abdominal pain, nausea, vomiting, bloody stools or diarrhea : Denies dysuria Musculoskeletal: Denies back pain or joint pain Integument: Denies rash Neurologic: Denies headache, focal weakness or sensory changes Endocrine: Denies polyuria or polydipsia Lymphatic: Denies swollen glands Psychiatric: Denies depression or anxiety (SUMIT BECERRA APRN) Allergies: Allergies: Allergies Coded Allergies Type Severity Reaction Last Updated Verified Influenza Virus Vaccines Allergy Unknown 06/24/21 Yes (SUMIT BECERRA APRN) Physical Exam: PE: Constitutional: Well developed, well nourished, mild distress, non-toxic appearance. [] HENT: Normocephalic, atraumatic, bilateral external ears normal, oropharynx moist, no oral exudates, nose normal. [] Eyes: PERRLA, EOMI, conjunctiva normal, no discharge. [] Neck: Normal range of motion, no tenderness, supple, no stridor. [] Cardiovascular: Monitor shows atrial fibrillation at a rate of 120, no murmur [] Lungs & Thorax: Bilateral breath sounds clear to auscultation [] Abdomen: Bowel sounds hypoactive, tenderness noted with palpation to the epi gastric area Skin: Warm, dry, no erythema, no rash. [] Back: No tenderness, no CVA tenderness. [] Extremities: No tenderness, no cyanosis, no clubbing, ROM intact, trace pedal edema noted Neurologic: Alert and oriented X 3, normal motor function, normal sensory function, no focal deficits noted. [] Psychologic: Affect normal, judgement normal, mood normal. [] (SUMIT BECERRA APRN) Current Patient Data: Labs: Laboratory Tests Test 06/24/21 19:35 06/24/21 20:32 White Blood Count 6.7 x10^3/uL Red Blood Count 3.71 x10^6/uL Hemoglobin 11.3 g/dL Hematocrit 36.1 % Mean Corpuscular Volume 97 fL Mean Corpuscular Hemoglobin 30 pg Mean Corpuscular Hemoglobin Concent 31 g/dL Red Cell Distribution Width 14.1 % Platelet Count 203 x10^3/uL Neutrophils (%) (Auto) 54 % Lymphocytes (%) (Auto) 33 % Monocytes (%) (Auto) 10 % Eosinophils (%) (Auto) 2 % Basophils (%) (Auto) 1 % Neutrophils # (Auto) 3.6 x10^3uL Lymphocytes # (Auto) 2.2 x10^3/uL Monocytes # (Auto) 0.7 x10^3/uL Eosinophils # (Auto) 0.1 x10^3/uL Basophils # (Auto) 0.1 x10^3/uL Sodium Level 140 mmol/L Potassium Level 5.3 mmol/L Chloride Level 105 mmol/L Carbon Dioxide Level 28 mmol/L Anion Gap 7 Blood Urea Nitrogen 22 mg/dL Creatinine 1.2 mg/dL Estimated GFR (Cockcroft-Gault) 42.8 BUN/Creatinine Ratio 18 Glucose Level 183 mg/dL Calcium Level 8.7 mg/dL Total Bilirubin 0.6 mg/dL Aspartate Amino Transf (AST/SGOT) 29 U/L Alanine Aminotransferase (ALT/SGPT) 17 U/L Alkaline Phosphatase 77 U/L Troponin I High Sensitivity 11 ng/L ID-Ees-V-Type Natriuretic Peptide 1747 pg/mL Total Protein 6.8 g/dL Albumin 3.4 g/dL Albumin/Globulin Ratio 1.0 Lipase 228 U/L SARS-CoV-2 Antigen (Rapid) Negative Current Medications Medications (Trade) Dose Ordered Sig/Ike Route PRN Reason Start Time Stop Time Status Last Admin Dose Admin Ondansetron HCl (Zofran) 4 mg 1X ONCE IVP 06/24/21 19:15 06/24/21 19:20 DC 06/24/21 19:42 Fentanyl Citrate (Fentanyl 2ml Vial) 25 mcg 1X ONCE IVP 06/24/21 19:15 06/24/21 19:20 DC 06/24/21 19:41 Sodium Chloride 1,000 ml @ 100 mls/hr 1X ONCE IV 06/24/21 19:15 06/25/21 05:14 06/24/21 19:40 Diltiazem HCl (Cardizem 24hr Cd) 120 mg 1X ONCE PO 06/24/21 21:30 06/24/21 21:31 DC 06/24/21 21:56 Diltiazem HCl (Cardizem Iv Push) 10 mg 1X ONCE IVP 06/24/21 22:00 06/24/21 22:01 DC 06/24/21 21:35 Vital Signs: Vital Signs Date Time Temp Pulse Resp B/P (MAP) Pulse Ox O2 Delivery O2 Flow Rate FiO2 06/24/21 18:50 98.2 119 21 155/74 (101) 94 Room Air (SUMIT BECERRA MOLD 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 Wells at 2119 no STEMI heart rate is 107 atrial fibrillation noted [] (SUMIT BECERRA MOLD CUTTING MACHINE OPERATOR) Radiology/Procedures: Radiology/Procedures: REASON: tachycardia PROCEDURE: CHEST AP ONLY AP chest. HISTORY: Tachycardia AP view was taken of the chest. Patient's taken a poor inspiration. There is elevation the right diaphragm. There are stimulating leads in the thoracic spinal canal. There is a left pacemaker with atrial and ventricular leads without change. There is mild vascular congestion. There are no confluent infiltrates. IMPRESSION: 1. Mild vascular congestion. 2. No confluent infiltrates. Electronically signed by: Jens Alexis MD (06/24/2021 7:40 PM) [facility][] (SUMIT BECERRA APRN) Heart Score: C/O Chest Pain: N/A Risk Factors: Risk Factors: DM, Current or recent (<one month) smoker, HTN, HLP, family history of CAD, obesity. Risk Scores: Score 0 - 3: 2.5% MACE over next 6 weeks - Discharge Home Score 4 - 6: 20.3% MACE over next 6 weeks - Admit for Clinical Observation Score 7 - 10: 72.7% MACE over next 6 weeks - Early Invasive Strategies (SUMIT BECERRA APRN) Course & Med Decision Making: Course & Med Decision Making Pertinent Labs and Imaging studies reviewed. (See chart for details) 2100 reassessment of patient she states she feels 100% better no abdominal pain at all, heart rate continues to be A. fib [id number], did speak to son and patient about medication regime I do not have a current list of her medications I did print off an old list from 2018 and they state that some of the medications sounded familiar she states she is definitely on Diltiazem still but is unsure if she took a dose this morning. We will obtain an EKG and will give her a dose of intravenous Cardizem 10 mg and if her heart rate does decrease we will also give her a dose of oral Cardizem to see if that will continue to keep her heart rate down. Patient is requesting to go home and follow-up with her primary care in the a.m. Did consult with Dr. Wells he feels decreasing her heart rate before discharge is recommended. 2150 heart rate currently is 92-96 A. fib, pressure is 131/68, will give patient a dose of by mouth Diltiazem (SUMIT BECERRA APRN) Ag Disclaimer: Ag Disclaimer: This electronic medical record was generated, in whole or in part, using a voice recognition dictation system. (SUMIT BECERRA APRN) Departure Departure: Impression: Primary Impression: Abdominal pain Qualified Codes: R10.84 - Generalized abdominal pain Additional Impression: Atrial fibrillation Qualified Codes: I48.91 - Unspecified atrial fibrillation Disposition: 01 HOME / SELF CARE / HOMELESS Condition: STABLE Referrals: ALLEN KAMARA MD (PCP) Patient Instructions: Abdominal Pain, Atrial Fibrillation, Cardiac Diet, [id number] Additional Instructions: Continue to take all your medications as prescribed by your primary care physician Follow-up in the a.m. with your primary care physician to inform them you are here in the emergency department although your heart rate was anywhere from 100- 1 40s Clear liquid diet for the next 12 to 24 hours and then advance as tolerated Return to the emergency department for increased abdominal pain, increased heart rate that you feel dizzy or lightheaded with, fever or chills with abdominal pain, or increased weakness. Scripts Fluconazole (DIFLUCAN) 100 Mg Tablet 100 MG PO DAILY for daily post antibiotic for 3 Days, #3 TAB Prov: LEV WELLS MD 06/24/21 Ciprofloxacin Hcl (CIPRO) 500 Mg Tablet 1 TAB PO BID for UTI for 7 Days, #14 TAB 0 Refills Prov: LEV WELLS MD 06/24/21 Dragon Disclaimer This chart was dictated in whole or in part using Voice Recognition software in a busy, high-work load, and often noisy Emergency Department environment. It may contain unintended and wholly unrecognized errors or omissions. (LEV WELLS MD) Dragon Disclaimer This chart was dictated in whole or in part using Voice Recognition software in a busy, high-work load, and often noisy Emergency Department environment. It may contain unintended and wholly unrecognized errors or omissions. (LEV WELLS MD) SUMIT BECERRA APRN Jun 24, 2021 19:14 LEV WELLS MD Jun 25, 2021 09:02
[2021-06-24] MEDS ORDERED: IV NORMAL SALINE 1,000ML 1,000 ML IV ONE (19:15)
[2021-06-24] MEDS ORDERED: ONDANSETRON PF 4 MG/2 ML VIAL. IVP ONE (19:15)
--- NOTE | 2021-06-24 19:43 | RAD ---
AP chest. HISTORY: Tachycardia AP view was taken of the chest. Patient's taken a poor inspiration. There is elevation the right diap hragm. There are stimulating leads in the thoracic spinal canal. There is a left pacemaker with atria l and ventricular leads without change. There is mild vascular congestion. There are no confluent inf iltrates. IMPRESSION: 1. Mild vascular congestion. 2. No confluent infiltrates. Electronically signed by: Jens Alexis MD (06/24/2021 7:40 PM) [facility]
[2021-06-24 20:13] LABS: BASO # 0.1 x10^3/uL (0.0-0.2); BASO % 1 % (0-3); EOS # 0.1 x10^3/uL (0.0-0.7); EOS % 2 % (0-3); HEMATOCRIT 36.1 % (36.0-47.0); HEMOGLOBIN 11.3 g/dL (12.0-15.5); LYMPH # 2.2 x10^3/uL (1.0-4.8); LYMPH % 33 % (24-48); MEAN CORPUSCULAR HEMOGLOBIN 30 pg (25-35); MEAN CORPUSCULAR HGB CONC 31 g/dL (31-37); MEAN CORPUSCULAR VOLUME 97 fL (79-100); MONO # 0.7 x10^3/uL (0.0-1.1); MONO % 10 % (0-9); NEUT # 3.6 x10^3uL (1.8-7.7); NEUT % 54 % (31-73); PLATELET COUNT 203 x10^3/uL (140-400); RED BLOOD COUNT 3.71 x10^6/uL (3.50-5.40); RED CELL DISTRIBUTION WIDTH 14.1 % (11.5-14.5); WHITE BLOOD COUNT 6.7 x10^3/uL (4.0-11.0)
[2021-06-24 20:22] LABS: CALCIUM 8.7 mg/dL (8.5-10.1); CREATININE 1.2 mg/dL (0.6-1.0); GFR 42.8; POTASSIUM 5.3 mmol/L (3.5-5.1)
[2021-06-24 20:36] LABS: ALBUMIN 3.4 g/dL (3.4-5.0); TOTAL BILIRUBIN 0.6 mg/dL (0.2-1.0); TOTAL PROTEIN 6.8 g/dL (6.4-8.2)
[2021-06-24] MEDS ORDERED: dilTIAZem 25 MG/5 ML VIAL IVP ONE (22:00)
[2021-06-24 22:41] LABS: CLARITY,URINE CLOUDY; COLOR,URINE YELLOW
[2021-06-24 22:42] LABS: BILIRUBIN,URINE NEG (NEG); GLUCOSE,URINE NEG (NEG); NITRITE,URINE NEG (NEG); UROBILINOGEN,URINE 0.2 mg/dL (0.2 mg/dL)
[2021-06-24 22:43] LABS: BACTERIA,URINE MANY /HPF (0-FEW); SQUAMOUS EPITHELIAL CELL,UR MOD /LPF
[2021-06-24] MEDS ORDERED: FLUC100T7 PO (22:50)
[2021-06-24] MEDS ORDERED: CIPR500T94 PO (22:50)
[2021-06-24 23:00] VITALS: BP 132/66
[2021-06-24] MEDS ORDERED: CIPROFLOXACIN HCL 500 MG TABLET PO ONE (23:00)
--- NOTE | 2021-06-25 04:12 | EKG ---
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
[2021-06-25] MEDS ORDERED: FLUC100T7 PO (13:54)
[2021-06-25] MEDS ORDERED: CIPR500T94 PO (13:54)
== END 2021-06-24 23:40 | disposition home or self-care (01) ==
LOC: ER 17:11
DX: I48.91 Unspecified atrial fibrillation (principal); R10.84 Generalized abdominal pain; E78.00 Pure hypercholesterolemia, unspecified; I12.9 Hypertensive chronic kidney disease with stage 1 through stage 4 chronic kidney disease, or unspecified chronic kidney disease; N18.9 Chronic kidney disease, unspecified; Z95.0 Presence of cardiac pacemaker; Z88.7 Allergy status to serum and vaccine
CPT/HCPCS: 99285; J2405; J3010; J3490; J7030; 36415; 71045; 80053; 81001; 83690; 83880; 84484; 85025; 87077; 87086; 87186; 87426; 93005; 96361; 96374; 96375; C9803; U0003

== ENCOUNTER 2021-06-26 13:32 | Inpatient (IN) | payer MEDICARE, OTHER ==
[~2021-06-26] VITALS: Ht 152.4 cm; Wt 90.2 kg
[~2021-06-26 13:32] MED LIST changes: +CIPR500T94 PO; +FLUC100T7 PO
[2021-06-26] MEDS ORDERED: IV NORMAL SALINE 1,000ML 1,000 ML IV ONE (14:45)
--- NOTE | 2021-06-26 14:57 | RAD ---
EXAMINATION: Chest radiograph. VIEWS: 1 COMPARISON: 06/24/2021 INDICATION:85 years, Female, shortness of breath. FINDINGS: Stable cardiomediastinal silhouette. Prominent bilateral agatha. Atherosclerotic calcifications of the aortic knob. Bilateral perihilar and basilar pulmonary infiltrates. No sizable pleural effusion or pn eumothorax. No acute osseous process. Left chest wall pacemaker device and spinal neurostimulator vandana d are unchanged in positions IMPRESSION: Bilateral perihilar and basilar pulmonary infiltrates. Differential includes multifocal pneumonia naeem rachana pulmonary edema. Recommend correlation is advised. Electronically signed by: Jw Patiño MD (06/26/2021 2:55 PM) [facility]
[2021-06-26 15:44] LABS: BASO % 1 % (0-3); EOS % 0 % (0-3); HEMATOCRIT 35.1 % (36.0-47.0); LYMPH # 2.5 x10^3/uL (1.0-4.8); LYMPH % 34 % (24-48); MEAN CORPUSCULAR HEMOGLOBIN 31 pg (25-35); MEAN CORPUSCULAR HGB CONC 31 g/dL (31-37); MEAN CORPUSCULAR VOLUME 99 fL (79-100); MONO % 14 % (0-9); NEUT # 3.9 x10^3uL (1.8-7.7); NEUT % 52 % (31-73); PLATELET COUNT 189 x10^3/uL (140-400); RED BLOOD COUNT 3.57 x10^6/uL (3.50-5.40); RED CELL DISTRIBUTION WIDTH 14.1 % (11.5-14.5); WHITE BLOOD COUNT 7.6 x10^3/uL (4.0-11.0)
[2021-06-26 15:51] LABS: ANION GAP 12 (6-14); BLOOD UREA NITROGEN 37 mg/dL (7-20); BUN/CREATININE RATIO 13 (6-20); CALCIUM 8.2 mg/dL (8.5-10.1); CARBON DIOXIDE 25 mmol/L (21-32); CHLORIDE 102 mmol/L (98-107); CREATININE 2.8 mg/dL (0.6-1.0); GFR 16.1; GLUCOSE 115 mg/dL (70-99); POTASSIUM 5.1 mmol/L (3.5-5.1); SODIUM 139 mmol/L (136-145)
[2021-06-26 16:07] LABS: ALBUMIN 3.3 g/dL (3.4-5.0); ALK PHOS 77 U/L (46-116); ALT (SGPT) 29 U/L (14-59); AST (SGOT) 38 U/L (15-37); MAGNESIUM 1.8 mg/dL (1.8-2.4); TOTAL BILIRUBIN 0.5 mg/dL (0.2-1.0); TOTAL PROTEIN 6.5 g/dL (6.4-8.2)
[2021-06-26 16:40] LABS: INFLUENZA A PATIENT NEGATIVE (NEGATIVE); INFLUENZA B PATIENT NEGATIVE (NEGATIVE)
--- NOTE | 2021-06-26 16:52 | PHYS DOC ---
Past History Past Medical History: A-Fib, CAD, Diabetes, GERD, High Cholesterol, Hypertension, Renal Disease Additional Past Medical Histor: PULMANARY HTN Past Surgical History: Hysterectomy, Knee Replacement, Pacemaker, Other Additional Past Surgical Histo: MULTIPLE BACK SURGERY; SKIN MOLE REMOVED FROM ARM AND CHEEK Smoking: Quit Greater Than 1 Year Alcohol Use: None Drug Use: None General Adult EDM: Chief Complaint: HYPOTENSION HPI: HPI: 86-year-old female presents with report of generalized weakness and fatigue that has been ongoing for the past several days. Patient was seen for similar in ER approximately 3 days ago. Patient was noted to have possible UTI and was started on Cipro. Patient reports weakness and fatigue have worsened. Son reports they measured her blood pressure at home with a wrist cuff which reportedly read 80s over 40s. Patient was concerned given low blood pressure reading and therefore presents today for further evaluation given hypotension. Patient denies any shortness of breath. Denies fever. Denies chest pain. Patient denies known COVID exposure. Patient has received Moderna vaccinations x2. Review of Systems: Review of Systems: Constitutional: Denies fever or chills reports malaise Eyes: Denies redness or eye pain HENT: Denies nasal congestion or sore throat Respiratory: Denies cough or shortness of breath Cardiovascular: Denies chest pain or palpitations GI: Denies abdominal pain, nausea, or vomiting : Denies dysuria or hematuria Musculoskeletal: Denies back pain or joint pain Integument: Denies rash or skin lesions Neurologic: Denies headache, focal weakness or sensory changes; reports generalized fatigue and weakness Complete systems were reviewed and found to be within normal limits, except as documented in this note. Current Medications: Current Meds: Current Medications Medications (Trade) Dose Ordered Sig/Ike Start Time Stop Time Status Last Admin Dose Admin Sodium Chloride 1,000 ml @ 1,000 mls/hr 1X ONCE 06/26/21 14:45 06/26/21 15:44 DC 06/26/21 15:25 1,000 MLS/HR Allergies: Allergies: Allergies Coded Allergies Type Severity Reaction Last Updated Verified Influenza Virus Vaccines Allergy Unknown 06/24/21 Yes Physical Exam: PE: Constitutional: Elderly, well nourished, no acute distress, non-toxic appearance HENT: Normocephalic, atraumatic Eyes: PERRL, EOMI, conjunctiva normal, no discharge Neck: Normal range of motion, no tenderness, supple Lungs & Thorax: No respiratory distress, equal chest rise and fall Abdomen: Soft, no tenderness Skin: Warm, dry, no erythema, no rash Back: No tenderness, no CVA tenderness Extremities: No tenderness, ROM intact, no edema Neurologic: Alert and oriented X 3, normal motor function, normal sensory function, no focal deficits noted Psychologic: Affect normal, judgment normal Current Patient Data: Labs: Laboratory Tests Test 06/26/21 15:10 06/26/21 15:47 White Blood Count 7.6 x10^3/uL (4.0-11.0) Red Blood Count 3.57 x10^6/uL (3.50-5.40) Hemoglobin 11.0 g/dL (12.0-15.5) L Hematocrit 35.1 % (36.0-47.0) L Mean Corpuscular Volume 99 fL (79-100) Mean Corpuscular Hemoglobin 31 pg (25-35) Mean Corpuscular Hemoglobin Concent 31 g/dL (31-37) Red Cell Distribution Width 14.1 % (11.5-14.5) Platelet Count 189 x10^3/uL (140-400) Neutrophils (%) (Auto) 52 % (31-73) Lymphocytes (%) (Auto) 34 % (24-48) Monocytes (%) (Auto) 14 % (0-9) H Eosinophils (%) (Auto) 0 % (0-3) Basophils (%) (Auto) 1 % (0-3) Neutrophils # (Auto) 3.9 x10^3uL (1.8-7.7) Lymphocytes # (Auto) 2.5 x10^3/uL (1.0-4.8) Monocytes # (Auto) 1.0 x10^3/uL (0.0-1.1) Eosinophils # (Auto) 0.0 x10^3/uL (0.0-0.7) Basophils # (Auto) 0.0 x10^3/uL (0.0-0.2) Sodium Level 139 mmol/L (136-145) Potassium Level 5.1 mmol/L (3.5-5.1) Chloride Level 102 mmol/L (98-107) Carbon Dioxide Level 25 mmol/L (21-32) Anion Gap 12 (6-14) Blood Urea Nitrogen 37 mg/dL (7-20) H Creatinine 2.8 mg/dL (0.6-1.0) H Estimated GFR (Cockcroft-Gault) 16.1 BUN/Creatinine Ratio 13 (6-20) Glucose Level 115 mg/dL (70-99) H Lactic Acid Level 3.0 mmol/L (0.4-2.0) H Calcium Level 8.2 mg/dL (8.5-10.1) L Magnesium Level 1.8 mg/dL (1.8-2.4) Total Bilirubin 0.5 mg/dL (0.2-1.0) Aspartate Amino Transferase (AST) 38 U/L (15-37) H Alanine Aminotransferase (ALT) 29 U/L (14-59) Alkaline Phosphatase 77 U/L (46-116) Creatine Kinase 41 U/L (26-192) Creatine Kinase MB (Mass) < 0.5 ng/mL (0.0-3.6) Creatine Kinase MB Relative Index 1.2 % (0-4) Troponin I High Sensitivity 21 ng/L (4-50) GE-Nyo-J-Type Natriuretic Peptide 3460 pg/mL (0-449) H Total Protein 6.5 g/dL (6.4-8.2) Albumin 3.3 g/dL (3.4-5.0) L Albumin/Globulin Ratio 1.0 (1.0-1.7) Influenza Type A (Rapid) Negative (NEGATIVE) Influenza Type B (Rapid) Negative (NEGATIVE) SARS-CoV-2 Antigen (Rapid) Negative (NEGATIVE) EKG: EKG: @1540 Afib at 101bpm, NO ST elevation, QRS 60ms, QT/QTc 348/452ms, low voltage QRS Radiology/Procedures: Radiology/Procedures: PROCEDURE: CHEST AP ONLY EXAMINATION: Chest radiograph. VIEWS: 1 COMPARISON: 06/24/2021 INDICATION:85 years, Female, shortness of breath. FINDINGS: Stable cardiomediastinal silhouette. Prominent bilateral agatha. Atherosclerotic calcifications of the aortic knob. Bilateral perihilar and basilar pulmonary infiltrates. No sizable pleural effusion or pneumothorax. No acute osseous process. Left chest wall pacemaker device and spinal neurostimulator lead are unchanged in positions IMPRESSION: Bilateral perihilar and basilar pulmonary infiltrates. Differential includes multifocal pneumonia versus pulmonary edema. Recommend correlation is advised. Electronically signed by: Jw aPtiño MD (06/26/2021 2:55 PM) [facility] Heart Score: C/O Chest Pain: N/A Course & Med Decision Making: Course & Med Decision Making Pertinent Labs and Imaging studies reviewed. (See chart for details) Elderly patient who presents with generalized malaise and fatigue that has been ongoing for the past several days. Patient noted at home to have low blood pres sure. Patient reports worsening of symptoms. Denies COVID exposure. Patient does report she has been COVID vaccinated. COVID testing still obtained. COVID and influenza negative. Other labs obtained and posted to chart. BNP elevated. Lactic acid elevated. Renal insufficiency noted. Chest x-ray with findings concerning for pneumonia. Empiric antibiotic initiated. Patient requiring admission for further evaluation and treatment. Discussed with Dr. Johnsno (hospitalist) who is in agreement with admission. Discussed findings and plan with patient and family, who acknowledge understanding and agreement. Ag Disclaimer: Ag Disclaimer: This electronic medical record was generated, in whole or in part, using a voice recognition dictation system. Departure Departure: Impression: Primary Impression: Pneumonia Qualified Codes: J18.9 - Pneumonia, unspecified organism Additional Impressions: Hypotension Qualified Codes: I95.9 - Hypotension, unspecified Acute on chronic renal failure Qualified Codes: N17.9 - Acute kidney failure, unspecified; N18.9 - Chronic kidney disease, unspecified Lactic acidosis Elevated brain natriuretic peptide (BNP) level Disposition: ADMITTED INPATIENT Admitting Physician: Awa Johnson Condition: GUARDED Referrals: ALLEN KAMARA MD (PCP) Critical Care Time Critical care time was 30 minutes which includes time at bedside, spent in discussion of patient's care with specialists and/or family members, with interpretation of laboratory and/or radiological studies and is exclusive of procedures. PIEDAD LAZCANO DO Jun 26, 2021 16:52
[2021-06-26 17:21] LABS: COLOR,URINE YELLOW
[2021-06-26 17:22] LABS: BACTERIA,URINE MOD /HPF (0-FEW); BILIRUBIN,URINE SMALL (NEG); CLARITY,URINE CLEAR; GLUCOSE,URINE NEG (NEG); NITRITE,URINE NEG (NEG); RBC,URINE 0 /HPF (0-2); SQUAMOUS EPITHELIAL CELL,UR MANY /LPF; UROBILINOGEN,URINE 0.2 mg/dL (0.2 mg/dL)
--- NOTE | 2021-06-26 17:37 | EKG ---
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
[2021-06-26] MEDS ORDERED: ACETAMINOPHEN 325 MG TABLET PO PRN (19:45)
[2021-06-26] MEDS ORDERED: DEXTROSE 50% 25 GM / 50ML DISP.SYRIN. IV PRN (19:45)
[2021-06-26] MEDS ORDERED: AZITHROMYCIN 500 MG in IV NORMAL SALINE 250ML 250 ML IV ONE (20:00)
[2021-06-27] MEDS ORDERED: IV NORMAL SALINE 250ML 250 ML ONE (01:53)
[2021-06-27] MEDS ORDERED: AZITHROMYCIN 500 MG VIAL. IV ONE (01:54)
[2021-06-27] MEDS ORDERED: cefTRIAXone SODIUM 1 GM VIAL ONE ×2 (01:54→01:55)
[2021-06-27] MEDS ORDERED: IV NORMAL SALINE 50ML 50 ML ONE (01:54)
--- NOTE | 2021-06-27 05:02 | NUR ---
The patient, AUDREY ABBOTT, 86 y/o, F admitted by ROGERS GIL MD, was given written information regarding hospital policies, unit procedures and contact persons. Valuables were checked and logged. Call light in place.
[2021-06-27 05:26] VITALS: BP 97/51
--- NOTE | 2021-06-27 05:40 | NUR ---
Pt denies taking any medication except for her insulin one time. Will clarify with son who he lives with her. Pt is forgetful at times and thought Henok was the president. Pt is pleasant.
[2021-06-27] MEDS: INSULIN LISPRO 300 UNITS/3 ML VIAL. SQ SCH ×3 (08:00→17:00)
[2021-06-27] MEDS: LOSARTAN 50 MG TABLET. PO SCH (10:30)
[2021-06-27] MEDS ORDERED: APIXABAN 5 MG TABLET. PO SCH (10:30)
[2021-06-27] MEDS: ATORVASTATIN CALCIUM 20 MG TABLET PO SCH (10:57)
[2021-06-27] MEDS: IV NORMAL SALINE 1,000ML 1,000 ML IV SCH ×2 (10:58→19:58)
[2021-06-27] MEDS: APIXABAN 5 MG TABLET. PO SCH ×2 (11:01→19:57)
[2021-06-27 12:34] VITALS: BP 114/61
[2021-06-27] MEDS ORDERED: MEMA5TAB42 PO (14:39)
[2021-06-27 15:00] VITALS: BP 134/87
[2021-06-27 15:29] LABS: HEMATOCRIT 33.7 % (36.0-47.0); HEMOGLOBIN 10.6 g/dL (12.0-15.5); RED BLOOD COUNT 3.44 x10^6/uL (3.50-5.40); RED CELL DISTRIBUTION WIDTH 13.9 % (11.5-14.5); WHITE BLOOD COUNT 6.6 x10^3/uL (4.0-11.0)
[2021-06-27 15:44] LABS: ALBUMIN 3.3 g/dL (3.4-5.0); CREATININE 2.5 mg/dL (0.6-1.0); GFR 18.3; POTASSIUM 5.1 mmol/L (3.5-5.1); TOTAL BILIRUBIN 0.3 mg/dL (0.2-1.0); TOTAL PROTEIN 6.6 g/dL (6.4-8.2)
--- NOTE | 2021-06-27 16:30 | HP ---
DATE OF SERVICE: 06/27/2021 ADMIT DATE: 06/26/2021 HISTORY OF PRESENT ILLNESS: The patient is an 86-year-old female patient who presented to the Emergency Room of [facility] with reported generalized weakness and fatigue that has been ongoing for the past several days. She was seen for similar complaint in the ER approximately 3 days ago. The patient was noted to have possible UTI and was started on Cipro. She reported weakness and fatigue that have worsened. Son reports that he measured her blood pressure at home with a wrist cuff that reportedly read 80s/40s. The patient was concerned given her low blood pressure reading and therefore, she presented to the Emergency Room for further evaluation and treatment of hypotension. The patient denied any shortness of breath. Denied any fever or chest pain. She denied any COVID exposure. She did receive Moderna vaccination x 2. She was extensively evaluated in the Emergency Room and has had lab work, which showed her white cell count was normal. Her chemistry showed that her BUN and creatinine has dramatically risen. In fact, her creatinine on 06/24/2021 was only 1.2 and on admission, was 2.8 and her BUN was 22 and on admission, it was 37 and therefore, the patient was admitted with hypotension, acute on chronic kidney failure, lactic acidosis. Her chest x-ray showed that the patient might have bilateral perihilar and basilar pulmonary infiltrate. Differential includes multifocal pneumonia versus pulmonary edema. Recommend correlation. She was treated with IV fluid as well as IV antibiotic in the form of ceftriaxone and Zithromax. PAST MEDICAL HISTORY: Significant for atrial fibrillation, diastolic congestive heart failure, hypertension, hyperlipidemia. She is known to have pulmonary hypertension, anemia, generalized osteoarthritis, chronic renal insufficiency, hyperthyroidism. She has multinodular goiter diagnosed in 2014, on methimazole. PAST SURGICAL HISTORY: Noncontributory. FAMILY HISTORY: Noncontributory. SOCIAL HISTORY: She lives with her son. She does not smoke, drink alcohol or recreational drugs. ALLERGIES: SHE IS ALLERGIC TO INFLUENZA VIRUS VACCINE. MEDICATIONS: She is currently on the following medications: She was supposed to be on ciprofloxacin 500 mg twice a day, fluconazole 100 mg 3 times per week, apixaban 2.5 mg twice a day, atorvastatin calcium 20 mg at bedtime, diltiazem 120 mg extended release once a day, gabapentin 300 mg twice a day, Namenda 5 mg twice a day, omeprazole 20 mg daily, sitagliptin phosphate 50 mg once a day and methimazole 5 mg daily. REVIEW OF SYSTEMS: As per history of present illness. PHYSICAL EXAMINATION: GENERAL: On arrival to the Emergency Room, the patient looked well and was clearly in no apparent respiratory distress. She was pale, but not jaundiced or cyanosed, no lymphadenopathy, no thyromegaly, no jugular venous distention. No limb edema. VITAL SIGNS: Her heart rate was 69, blood pressure was 97/53, temperature was 98.2, respiratory rate 20, and oxygen saturation was 96% on room air. HEAD, EYES, EARS, NOSE, AND THROAT: Normocephalic, atraumatic. NECK: Supple. HEART: Normal first and second heart sounds. No gallop, rub or murmur. CHEST: Shows central trachea, equal bilateral chest expansion, air entry, vesicular breath sounds. No crepitation or rhonchi. ABDOMEN: Distended, soft, nontender. NEUROLOGIC: She is demented, very poor short-term memory; however, all her cranial nerves intact. She moves extremities without difficulty. She normally ambulates with a walker. LABORATORY WORK: On admission showed a white cell count of 7600, hemoglobin 11, hematocrit 35, MCV 99 and platelet count of 189,000 with normal manual differential. Her chemistry showed a serum sodium of 138, potassium 5.1, chloride 102, bicarbonate 25, anion gap of 12, BUN 37, creatinine 2.8. Estimated GFR was 16 mL per minute. Her glucose 115, calcium was 8.2, magnesium was 1.8. Total bilirubin, AST, ALT, alkaline phosphatase were normal. CK was 41, total protein 6.5, albumin 3.3. Her coronavirus by PCR was negative. Her influenza A and B were negative. Her chest x-ray showed that the patient has stable cardiomediastinal silhouette, prominent bilateral hilar, atherosclerotic calcification of the aortic knob, bilateral perihilar and basilar pulmonary infiltrate, no sizable pleural effusion or pneumothorax. No acute osseous process. Left chest wall pacemaker device and spinal neurostimulator leads are unchanged in position. ASSESSMENT AND PLAN: The patient was admitted with community-acquired pneumonia, acute on chronic kidney injury, hypotension, lactic acidosis. She has multiple other medical problems including atrial fibrillation on diltiazem and apixaban, chronic diastolic congestive heart failure, hyperlipidemia, pulmonary hypertension, anemia, generalized osteoarthritis and chronic kidney disease as well as hyperthyroidism, multinodular goiter on methimazole. We have actually reconciled all her medications. We will continue with IV fluid as well as IV ceftriaxone and Zithromax. BERNIE/ALICE/SKIP DR: Abbey TID: [id number]
--- NOTE | 2021-06-27 16:59 | PDOC2 ---
CARDIAC CONSULT DATE OF CONSULT DOS: DATE: 06/27/21 TIME: 16:53 REASON FOR CONSULT Reason for Consult Atrial fibrillation REFERRING PHYSICIAN Referring Physician Dr. Johnson SOURCE Source: Chart review, Patient HPI History of Present Illness The patient is an 86-year-old female who reports 4 to 5 days of increasing weakness and fatigue. She was seen in the emergency room approximately 3 days ago and started on Cipro for a UTI. However her symptoms have progressed. She was seen in the emergency room and initial work-up included a chest x-ray with bilateral perihilar and basilar pulmonary infiltrates. EKG showed an atrial fibrillation a rate of 101. Potassium 5.1, creatinine 2.5, BUN of 3460 and a normal troponin at 21. Patient was admitted and has been treated for probable pneumonia and started on IV antibiotics. Additionally she has been treated with IV fluids for her hypotension which has improved. She has a history of chronic renal disease which is being monitored. Additionally he has reported history of atrial fibrillation. On examination the patient reports feeling significantly better. She denies chest pain or dizziness. Her shortness of breath significantly improved. PAST MEDICAL HISTORY Cardiovascular: AFIB, CAD, HTN, hyperipidemia, pulmonary hypertension Pulmonary: COPD Renal/: Chronic renal insuff Endocrine: Diabetes PAST SURGICAL HISTORY Past Surgical History: Total knee replacement, Hysterectomy, Pacemaker FAMILY HISTORY Family History: Heart Disease SOCIAL HISTORY Smoke: Quit ALCOHOL: none CURRENT MEDICATIONS Current Medications Current Medications Sodium Chloride 1,000 ml @ 1,000 mls/hr 1X ONCE IV Last administered on 06/26/21at 15:25; Start 06/26/21 at 14:45; Stop 06/26/21 at 15:44; Status DC Ceftriaxone Sodium 1 gm/ Sodium Chloride 50 ml @ 100 mls/hr 1X ONCE IV Last administered on 06/27/21at 02:15; Start 06/26/21 at 19:45; Stop 06/26/21 at 20:14; Status DC Azithromycin 500 mg/Sodium Chloride 250 ml @ 250 mls/hr 1X ONCE IV Last administered on 06/27/21at 02:15; Start 06/26/21 at 20:00; Stop 06/26/21 at 20:59; Status DC Insulin Human Lispro (HumaLOG) 0-5 UNITS TIDWMEALS SQ Last administered on 06/27/21at 12:00; Start 06/27/21 at 08:00 Dextrose (Dextrose 50%-Water Syringe) 12.5 gm PRN Q15MIN PRN IV SEE COMMENTS; Start 06/26/21 at 19:45 Acetaminophen (Tylenol) 650 mg PRN Q4HRS PRN PO FEVER > 100.3'F; Start 06/26/21 at 19:45; Stop 06/27/21 at 19:44 Sodium Chloride 250 ml @ As Directed STK-MED ONCE .ROUTE ; Start 06/27/21 at 01:53; Stop 06/27/21 at 01:54; Status DC Azithromycin (Zithromax) 500 mg STK-MED ONCE IV ; Start 06/27/21 at 01:54; Stop 06/27/21 at 01:54; Status DC Ceftriaxone Sodium (Rocephin) 1 gm STK-MED ONCE .ROUTE ; Start 06/27/21 at 01:54; Stop 06/27/21 at 01:54; Status DC Sodium Chloride 50 ml @ As Directed STK-MED ONCE .ROUTE ; Start 06/27/21 at 01:54; Stop 06/27/21 at 01:54; Status DC Ceftriaxone Sodium (Rocephin) 1 gm STK-MED ONCE .ROUTE ; Start 06/27/21 at 01:55; Stop 06/27/21 at 01:56; Status DC Apixaban (Eliquis) 2.5 mg BID PO ; Start 06/27/21 at 10:30; Stop 06/27/21 at 10:55; Status DC Atorvastatin Calcium (Lipitor) 40 mg DAILY PO Last administered on 06/27/21at 10:57; Start 06/27/21 at 10:30 Diltiazem HCl (Cardizem 24hr Cd) 120 mg DAILY PO Last administered on 06/27/21at 10:56; Start 06/27/21 at 10:30 Metoprolol Succinate (Toprol Xl) 25 mg DAILY PO ; Start 06/28/21 at 09:00; Stop 06/27/21 at 10:14; Status DC Losartan Potassium (Cozaar) 100 mg DAILY PO ; Start 06/27/21 at 10:30 Sodium Chloride 1,000 ml @ 100 mls/hr Q10H IV Last administered on 06/27/21at 10:58; Start 06/27/21 at 10:15 Apixaban (Eliquis) 5 mg BID PO Last administered on 06/27/21at 11:01; Start 06/27/21 at 11:00 Gabapentin (Neurontin) 300 mg BID PO ; Start 06/27/21 at 21:00 Memantine (Namenda) 5 mg BID PO ; Start 06/27/21 at 21:00 Methimazole (Tapazole) 5 mg DAILY PO ; Start 06/28/21 at 09:00 Pantoprazole Sodium (Protonix) 40 mg DAILY PO ; Start 06/28/21 at 09:00 Linagliptin (Tradjenta) 5 mg DAILY PO ; Start 06/28/21 at 09:00 Lorazepam (Ativan) 0.5 mg PRN Q4HRS PRN PO ANXIETY / AGITATION; Start 06/27/21 at 16:30 Active Scripts Active Diflucan (Fluconazole) 100 Mg Tablet 100 Mg PO DAILY 3 Days Cipro (Ciprofloxacin Hcl) 500 Mg Tablet 1 Tab PO BID 7 Days Eliquis (Apixaban) 5 Mg Tablet 2.5 Mg PO BID Reported Memantine HCl 5 Mg Tablet 1 Tab PO BID Omeprazole 20 Mg Capsule.dr 1 Cap PO DAILY Methimazole 5 Mg Tablet 5 Mg PO DAILY Januvia (Sitagliptin Phosphate) 50 Mg Tablet 1 Tab PO DAILY Lipitor (Atorvastatin Calcium) 20 Mg Tablet 2 Tab PO DAILY Diltiazem 24HR Cd (Diltiazem Hcl) 120 Mg Cap.er.24h 1 Cap PO DAILY Gabapentin (Gabapentin) 300 Mg Capsule 300 Mg PO BID ALLERGIES Allergies: Coded Allergies: Influenza Virus Vaccines (Verified Allergy, Unknown, 06/24/21) ROS General: YES: Fatigue, Malaise PHYSICAL EXAM General: mild distress HEENT: Atraumatic Lungs: Other (Minimally decreased breath sounds) Heart: Other (Irregularly irregular) VITALS Vital Signs Vital Signs Date Time Temp Pulse Resp B/P (MAP) Pulse Ox O2 Delivery O2 Flow Rate FiO2 06/27/21 12:34 118 18 114/61 (78) 95 Nasal Cannula 3.0 06/27/21 05:26 98.7 LABS LABS Laboratory Tests Test 06/26/21 15:10 06/26/21 15:47 06/26/21 16:35 06/27/21 08:20 White Blood Count 7.6 x10^3/uL (4.0-11.0) Red Blood Count 3.57 x10^6/uL (3.50-5.40) Hemoglobin 11.0 g/dL (12.0-15.5) Hematocrit 35.1 % (36.0-47.0) Mean Corpuscular Volume 99 fL (79-100) Mean Corpuscular Hemoglobin 31 pg (25-35) Mean Corpuscular Hemoglobin Concent 31 g/dL (31-37) Red Cell Distribution Width 14.1 % (11.5-14.5) Platelet Count 189 x10^3/uL (140-400) Neutrophils (%) (Auto) 52 % (31-73) Lymphocytes (%) (Auto) 34 % (24-48) Monocytes (%) (Auto) 14 % (0-9) Eosinophils (%) (Auto) 0 % (0-3) Basophils (%) (Auto) 1 % (0-3) Neutrophils # (Auto) 3.9 x10^3uL (1.8-7.7) Lymphocytes # (Auto) 2.5 x10^3/uL (1.0-4.8) Monocytes # (Auto) 1.0 x10^3/uL (0.0-1.1) Eosinophils # (Auto) 0.0 x10^3/uL (0.0-0.7) Basophils # (Auto) 0.0 x10^3/uL (0.0-0.2) Sodium Level 139 mmol/L (136-145) Potassium Level 5.1 mmol/L (3.5-5.1) Chloride Level 102 mmol/L (98-107) Carbon Dioxide Level 25 mmol/L (21-32) Anion Gap 12 (6-14) Blood Urea Nitrogen 37 mg/dL (7-20) Creatinine 2.8 mg/dL (0.6-1.0) Estimated GFR (Cockcroft-Gault) 16.1 BUN/Creatinine Ratio 13 (6-20) Glucose Level 115 mg/dL (70-99) Lactic Acid Level 3.0 mmol/L (0.4-2.0) Calcium Level 8.2 mg/dL (8.5-10.1) Magnesium Level 1.8 mg/dL (1.8-2.4) Total Bilirubin 0.5 mg/dL (0.2-1.0) Aspartate Amino Transf (AST/SGOT) 38 U/L (15-37) Alanine Aminotransferase (ALT/SGPT) 29 U/L (14-59) Alkaline Phosphatase 77 U/L (46-116) Creatine Kinase 41 U/L (26-192) Creatine Kinase MB (Mass) < 0.5 ng/mL (0.0-3.6) Creatine Kinase MB Relative Index 1.2 % (0-4) Troponin I High Sensitivity 21 ng/L (4-50) JD-Bda-D-Type Natriuretic Peptide 3460 pg/mL (0-449) Total Protein 6.5 g/dL (6.4-8.2) Albumin 3.3 g/dL (3.4-5.0) Albumin/Globulin Ratio 1.0 (1.0-1.7) Coronavirus (COVID-19)(PCR) Not detected (NOT DETECTD) Influenza Type A (Rapid) Negative (NEGATIVE) Influenza Type B (Rapid) Negative (NEGATIVE) SARS-CoV-2 Antigen (Rapid) Negative (NEGATIVE) Urine Collection Type Clean catch Urine Color Yellow Urine Clarity Clear Urine pH 5.0 Urine Specific [place] >=1.030 Urine Protein 100 mg/dl (NEG-TRACE) Urine Glucose (UA) Neg mg/dL (NEG) Urine Ketones (Stick) Neg mg/dL (NEG) Urine Blood Neg (NEG) Urine Nitrite Neg (NEG) Urine Bilirubin Small (NEG) Urine Urobilinogen Dipstick 0.2 mg/dL (0.2 mg/dL) Urine Leukocyte Esterase Trace (NEG) Urine RBC 0 /HPF (0-2) Urine WBC 11-20 /HPF (0-4) Urine Squamous Epithelial Cells Many /LPF Urine Bacteria Mod /HPF (0-FEW) Glucose (Fingerstick) 144 mg/dL (70-99) Test 06/27/21 11:55 06/27/21 15:15 Glucose (Fingerstick) 185 mg/dL (70-99) White Blood Count 6.6 x10^3/uL (4.0-11.0) Red Blood Count 3.44 x10^6/uL (3.50-5.40) Hemoglobin 10.6 g/dL (12.0-15.5) Hematocrit 33.7 % (36.0-47.0) Mean Corpuscular Volume 98 fL (79-100) Mean Corpuscular Hemoglobin 31 pg (25-35) Mean Corpuscular Hemoglobin Concent 32 g/dL (31-37) Red Cell Distribution Width 13.9 % (11.5-14.5) Platelet Count 166 x10^3/uL (140-400) Sodium Level 139 mmol/L (136-145) Potassium Level 5.1 mmol/L (3.5-5.1) Chloride Level 105 mmol/L (98-107) Carbon Dioxide Level 25 mmol/L (21-32) Anion Gap 9 (6-14) Blood Urea Nitrogen 40 mg/dL (7-20) Creatinine 2.5 mg/dL (0.6-1.0) Estimated GFR (Cockcroft-Gault) 18.3 BUN/Creatinine Ratio 16 (6-20) Glucose Level 176 mg/dL (70-99) Calcium Level 8.0 mg/dL (8.5-10.1) Total Bilirubin 0.3 mg/dL (0.2-1.0) Aspartate Amino Transf (AST/SGOT) 57 U/L (15-37) Alanine Aminotransferase (ALT/SGPT) 33 U/L (14-59) Alkaline Phosphatase 73 U/L (46-116) Total Protein 6.6 g/dL (6.4-8.2) Albumin 3.3 g/dL (3.4-5.0) Albumin/Globulin Ratio 1.0 (1.0-1.7) IMAGES IMAGES Chest x-ray as above EKG EKG Atrial fibrillation. ASSESSMENT/PLAN Assessment/Plan 1. Probable pneumonia. Increased weakness and fatigue for greater than 4 days. Chest x-ray as above. Patient been started on IV antibiotics. 2. History of coronary artery disease. Patient denies chest pain. Troponin is normal at 21. No acute ischemic changes on EKG. Continuing medical treatment. 3. History of a permanent pacemaker. Will obtain old records. Patient is in atrial fibrillation at this time. Continue rate control. 4. Hyperlipidemia. Will check morning lab. Continue medical treatment. 5. History of chronic renal disease. Monitoring lab. 6. Diabetes mellitus. As per the primary service. CLAU KHAN MD Jun 27, 2021 16:59
[2021-06-27] MEDS ORDERED: DIGOXIN IV 500 MCG/2 ML AMPUL. IV ONE ×2 (17:45→18:50)
[2021-06-27] MEDS ORDERED: OLANZapine IM 10 MG VIAL. IM PRN (18:30)
[2021-06-27 19:30] VITALS: BP 128/87
[2021-06-27] MEDS ORDERED: HALOPERIDOL LACT 5 MG/ML VIAL. IVP PRN (19:30)
[2021-06-27] MEDS: GABAPENTIN 300 MG CAPSULE. PO SCH (19:57)
[2021-06-27] MEDS: MEMANTINE 5 MG TABLET. PO SCH (19:58)
--- NOTE | 2021-06-27 20:45 | NUR ---
Pt's heart rate is still in the 110's to 140's consistently. Notified MD of this. Switched IV Haldol to IM and started PO cardizem tonight.
[2021-06-27] MEDS ORDERED: HALOPERIDOL LACT 5 MG/ML VIAL. IM PRN (21:00)
--- NOTE | 2021-06-27 21:24 | PN ---
DATE: 06/27/2021 SUBJECTIVE: The patient is resting slightly propped up in bed, in no apparent distress, awake, alert. On questioning her, she denied any complaint. Nursing staff did not voice any concern except that her heart rate continued to go up at times. However, her blood pressure is much better. PHYSICAL EXAMINATION: GENERAL: When I examined her, she was pale, but no jaundice, cyanosis, no lymphadenopathy, no thyromegaly, no jugular venous distention. No lower limb edema. VITAL SIGNS: Her heart rate was 103, blood pressure is 130/78, temperature was 98.2, respiratory rate 20, and oxygen saturation was 96% on 3 liters of oxygen. HEAD, EYES, EARS, NOSE, AND THROAT: Normocephalic, atraumatic. NECK: Supple. HEART: Normal first and second heart sounds. No gallop or murmur. CHEST: Clear to auscultation. No crepitation or rhonchi. ABDOMEN: Distended, soft, nontender. NEUROLOGIC: She is demented without any obvious lateralizing sign. Her intake over the last 24 hours and output were incompletely recorded. LABORATORY DATA: Her today's labs are still pending at the time of this dictation. ASSESSMENT: The patient was admitted with: 1. A community-acquired pneumonia. 2. Probably sepsis and hypertension that is improving. 3. Acute on chronic kidney injury. 4. Urinary tract infection as her urine culture done on 06/24 grew Klebsiella pneumoniae, sensitive to ceftriaxone. 5. Other medical problems include: A. Atrial fibrillation. B. Chronic diastolic congestive heart failure. C. Hypertension, although she is borderline hypertensive. D. Hyperlipidemia. E. Pulmonary hypertension. F. Anemia. G. Chronic kidney disease. H. Generalized osteoarthritis, I. Hyperthyroidism with multinodular goiter diagnosed in 2014, on methimazole. LORY DR: Abbey TID: [id number]
[2021-06-27 21:40] VITALS: BP 156/56
--- NOTE | 2021-06-27 21:41 | NUR ---
Pt was restless since the beginning of shift. Pt is sleeping at this time; however, her sats were dropping into the high 80's d/t being a mouth breather. Placed nasal cannula tubing into her mough and sats are 96-97%. Pt's heart rate is still anywhere from 100's-130's.
[2021-06-27 23:16] VITALS: BP 124/49
--- NOTE | 2021-06-28 00:30 | NUR ---
Pt's oxygen level dropped to the low 80's and high 70's. Pt was sound asleep but appears to be apneic with no known history of sleep apnea. Aroused to sternal rub and increased oxygen to 4 liters at this time. Pt's heart rate at this time was in the 60's and BP was soft. After pt was awake her oxygen sats came back up as well has her other vitals appeared to be wnl for patient's baseline.
[2021-06-28 01:06] VITALS: BP 101/63
[2021-06-28 02:58] VITALS: BP 122/58
[2021-06-28 05:05] VITALS: BP 117/50
[2021-06-28] MEDS: IV NORMAL SALINE 1,000ML 1,000 ML IV SCH (06:10)
--- NOTE | 2021-06-28 06:34 | NUR ---
Pt slept most of the night after haldol was given. Pt woke up for lab draws and compliant with lab draws.
[2021-06-28 06:56] LABS: BASO # 0.1 x10^3/uL (0.0-0.2); BASO % 1 % (0-3); EOS # 0.1 x10^3/uL (0.0-0.7); EOS % 2 % (0-3); HEMATOCRIT 34.6 % (36.0-47.0); HEMOGLOBIN 10.7 g/dL (12.0-15.5); LYMPH # 1.8 x10^3/uL (1.0-4.8); LYMPH % 23 % (24-48); MEAN CORPUSCULAR HEMOGLOBIN 31 pg (25-35); MEAN CORPUSCULAR HGB CONC 31 g/dL (31-37); MEAN CORPUSCULAR VOLUME 99 fL (79-100); MONO % 13 % (0-9); NEUT # 4.8 x10^3uL (1.8-7.7); NEUT % 62 % (31-73); PLATELET COUNT 168 x10^3/uL (140-400); RED BLOOD COUNT 3.51 x10^6/uL (3.50-5.40); RED CELL DISTRIBUTION WIDTH 14.1 % (11.5-14.5); WHITE BLOOD COUNT 7.8 x10^3/uL (4.0-11.0)
[2021-06-28 07:08] LABS: ALBUMIN 3.1 g/dL (3.4-5.0); CALCIUM 7.5 mg/dL (8.5-10.1); GFR 23.7; POTASSIUM 5.4 mmol/L (3.5-5.1); TOTAL BILIRUBIN 0.2 mg/dL (0.2-1.0); TOTAL PROTEIN 6.1 g/dL (6.4-8.2)
--- NOTE | 2021-06-28 07:36 | PDOC ---
CARDIO Progress Notes Date & Time Date of Service DATE: 06/28/21 TIME: 07:30 Time of Evaluation 07:30 Subjective Notes No chest pain, palpitations, SOA Vitals Vitals Vital Signs Date Time Temp Pulse Resp B/P (MAP) Pulse Ox O2 Delivery O2 Flow Rate FiO2 06/28/21 05:05 97.2 84 16 117/50 (72) 100 Nasal Cannula 4.0 Weight Weight [ ] Input and Output I.O. Intake and Output 06/28/21 07:00 Intake Total 50 ml Output Total 525 ml Balance -475 ml Intake Oral 50 ml Output Urine Total 525 ml Laboratory Labs Laboratory Tests Test 06/26/21 15:10 06/26/21 15:47 06/26/21 16:35 06/27/21 08:20 White Blood Count 7.6 x10^3/uL (4.0-11.0) Red Blood Count 3.57 x10^6/uL (3.50-5.40) Hemoglobin 11.0 g/dL (12.0-15.5) Hematocrit 35.1 % (36.0-47.0) Mean Corpuscular Volume 99 fL (79-100) Mean Corpuscular Hemoglobin 31 pg (25-35) Mean Corpuscular Hemoglobin Concent 31 g/dL (31-37) Red Cell Distribution Width 14.1 % (11.5-14.5) Platelet Count 189 x10^3/uL (140-400) Neutrophils (%) (Auto) 52 % (31-73) Lymphocytes (%) (Auto) 34 % (24-48) Monocytes (%) (Auto) 14 % (0-9) Eosinophils (%) (Auto) 0 % (0-3) Basophils (%) (Auto) 1 % (0-3) Neutrophils # (Auto) 3.9 x10^3uL (1.8-7.7) Lymphocytes # (Auto) 2.5 x10^3/uL (1.0-4.8) Monocytes # (Auto) 1.0 x10^3/uL (0.0-1.1) Eosinophils # (Auto) 0.0 x10^3/uL (0.0-0.7) Basophils # (Auto) 0.0 x10^3/uL (0.0-0.2) Sodium Level 139 mmol/L (136-145) Potassium Level 5.1 mmol/L (3.5-5.1) Chloride Level 102 mmol/L (98-107) Carbon Dioxide Level 25 mmol/L (21-32) Anion Gap 12 (6-14) Blood Urea Nitrogen 37 mg/dL (7-20) Creatinine 2.8 mg/dL (0.6-1.0) Estimated GFR (Cockcroft-Gault) 16.1 BUN/Creatinine Ratio 13 (6-20) Glucose Level 115 mg/dL (70-99) Lactic Acid Level 3.0 mmol/L (0.4-2.0) Calcium Level 8.2 mg/dL (8.5-10.1) Magnesium Level 1.8 mg/dL (1.8-2.4) Total Bilirubin 0.5 mg/dL (0.2-1.0) Aspartate Amino Transf (AST/SGOT) 38 U/L (15-37) Alanine Aminotransferase (ALT/SGPT) 29 U/L (14-59) Alkaline Phosphatase 77 U/L (46-116) Creatine Kinase 41 U/L (26-192) Creatine Kinase MB (Mass) < 0.5 ng/mL (0.0-3.6) Creatine Kinase MB Relative Index 1.2 % (0-4) Troponin I High Sensitivity 21 ng/L (4-50) LT-Usq-X-Type Natriuretic Peptide 3460 pg/mL (0-449) Total Protein 6.5 g/dL (6.4-8.2) Albumin 3.3 g/dL (3.4-5.0) Albumin/Globulin Ratio 1.0 (1.0-1.7) Coronavirus (COVID-19)(PCR) Not detected (NOT DETECTD) Influenza Type A (Rapid) Negative (NEGATIVE) Influenza Type B (Rapid) Negative (NEGATIVE) SARS-CoV-2 Antigen (Rapid) Negative (NEGATIVE) Urine Collection Type Clean catch Urine Color Yellow Urine Clarity Clear Urine pH 5.0 Urine Specific Curtis >=1.030 Urine Protein 100 mg/dl (NEG-TRACE) Urine Glucose (UA) Neg mg/dL (NEG) Urine Ketones (Stick) Neg mg/dL (NEG) Urine Blood Neg (NEG) Urine Nitrite Neg (NEG) Urine Bilirubin Small (NEG) Urine Urobilinogen Dipstick 0.2 mg/dL (0.2 mg/dL) Urine Leukocyte Esterase Trace (NEG) Urine RBC 0 /HPF (0-2) Urine WBC 11-20 /HPF (0-4) Urine Squamous Epithelial Cells Many /LPF Urine Bacteria Mod /HPF (0-FEW) Glucose (Fingerstick) 144 mg/dL (70-99) Test 06/27/21 11:55 06/27/21 15:15 06/27/21 17:01 06/28/21 00:16 Glucose (Fingerstick) 185 mg/dL (70-99) 160 mg/dL (70-99) 170 mg/dL (70-99) White Blood Count 6.6 x10^3/uL (4.0-11.0) Red Blood Count 3.44 x10^6/uL (3.50-5.40) Hemoglobin 10.6 g/dL (12.0-15.5) Hematocrit 33.7 % (36.0-47.0) Mean Corpuscular Volume 98 fL (79-100) Mean Corpuscular Hemoglobin 31 pg (25-35) Mean Corpuscular Hemoglobin Concent 32 g/dL (31-37) Red Cell Distribution Width 13.9 % (11.5-14.5) Platelet Count 166 x10^3/uL (140-400) Sodium Level 139 mmol/L (136-145) Potassium Level 5.1 mmol/L (3.5-5.1) Chloride Level 105 mmol/L (98-107) Carbon Dioxide Level 25 mmol/L (21-32) Anion Gap 9 (6-14) Blood Urea Nitrogen 40 mg/dL (7-20) Creatinine 2.5 mg/dL (0.6-1.0) Estimated GFR (Cockcroft-Gault) 18.3 BUN/Creatinine Ratio 16 (6-20) Glucose Level 176 mg/dL (70-99) Calcium Level 8.0 mg/dL (8.5-10.1) Total Bilirubin 0.3 mg/dL (0.2-1.0) Aspartate Amino Transf (AST/SGOT) 57 U/L (15-37) Alanine Aminotransferase (ALT/SGPT) 33 U/L (14-59) Alkaline Phosphatase 73 U/L (46-116) Total Protein 6.6 g/dL (6.4-8.2) Albumin 3.3 g/dL (3.4-5.0) Albumin/Globulin Ratio 1.0 (1.0-1.7) Test 06/28/21 06:25 06/28/21 07:27 White Blood Count 7.8 x10^3/uL (4.0-11.0) Red Blood Count 3.51 x10^6/uL (3.50-5.40) Hemoglobin 10.7 g/dL (12.0-15.5) Hematocrit 34.6 % (36.0-47.0) Mean Corpuscular Volume 99 fL (79-100) Mean Corpuscular Hemoglobin 31 pg (25-35) Mean Corpuscular Hemoglobin Concent 31 g/dL (31-37) Red Cell Distribution Width 14.1 % (11.5-14.5) Platelet Count 168 x10^3/uL (140-400) Neutrophils (%) (Auto) 62 % (31-73) Lymphocytes (%) (Auto) 23 % (24-48) Monocytes (%) (Auto) 13 % (0-9) Eosinophils (%) (Auto) 2 % (0-3) Basophils (%) (Auto) 1 % (0-3) Neutrophils # (Auto) 4.8 x10^3uL (1.8-7.7) Lymphocytes # (Auto) 1.8 x10^3/uL (1.0-4.8) Monocytes # (Auto) 1.0 x10^3/uL (0.0-1.1) Eosinophils # (Auto) 0.1 x10^3/uL (0.0-0.7) Basophils # (Auto) 0.1 x10^3/uL (0.0-0.2) Sodium Level 141 mmol/L (136-145) Potassium Level 5.4 mmol/L (3.5-5.1) Chloride Level 109 mmol/L (98-107) Carbon Dioxide Level 24 mmol/L (21-32) Anion Gap 8 (6-14) Blood Urea Nitrogen 35 mg/dL (7-20) Creatinine 2.0 mg/dL (0.6-1.0) Estimated GFR (Cockcroft-Gault) 23.7 BUN/Creatinine Ratio 18 (6-20) Glucose Level 175 mg/dL (70-99) Calcium Level 7.5 mg/dL (8.5-10.1) Total Bilirubin 0.2 mg/dL (0.2-1.0) Aspartate Amino Transf (AST/SGOT) 53 U/L (15-37) Alanine Aminotransferase (ALT/SGPT) 33 U/L (14-59) Alkaline Phosphatase 70 U/L (46-116) Total Protein 6.1 g/dL (6.4-8.2) Albumin 3.1 g/dL (3.4-5.0) Albumin/Globulin Ratio 1.0 (1.0-1.7) Glucose (Fingerstick) 168 mg/dL (70-99) Physical Exams HEENT: Neck Supple W Full Motion Chest: Symmetric Lungs: Other (diminished) Heart: irregularly irregular (AFIB) Abdomen: Soft N/T, Other (obese) Extremities: Other (trace bilateral LE edema ) Neurology: alert, confused Assessment Assessment 1. Acute respiratory failure with CHF and possible PNA 2. Acute on chronic probable diastolic CHF; appears compensated overall. monitor fluid status closely on IVFs. will repeat CXR 3. PAFIB; rate controlled. Continue Cardizem for rate control. Eliquis for stroke prophylaxis. Follows with [facility] cardiology. 4. SSS s/p PPM (Medtronic). intermittent v-pacing 6. Hypertension; controlled 7. Hyperlipidemia; statin 8. ELIE on CKD, hyperkalemia; Cr, improved s/p IVFs 9. Diabetes, II 10. UTI; ongoing antibiotic therapy as per IM 11. Hyperthyroidism; on methimazole. 12. Dementia LAY MCBRIDE APRN Jun 28, 2021 07:36
[2021-06-28] MEDS ORDERED: METOPROLOL SUCC 24HR ER 25 MG TAB.ER.24H. PO SCH (09:00)
[2021-06-28] MEDS: MEMANTINE 5 MG TABLET. PO SCH ×2 (09:44→21:00)
[2021-06-28] MEDS: PANTOPRAZOLE 40 MG TABLET. PO SCH (09:44)
[2021-06-28] MEDS: LACTOBACILLUS RHAMNOSUS GG 1 CAPSULE. PO SCH ×2 (09:44→21:00)
[2021-06-28] MEDS: ATORVASTATIN CALCIUM 20 MG TABLET PO SCH (09:44)
[2021-06-28] MEDS: APIXABAN 5 MG TABLET. PO SCH ×2 (09:45→21:00)
[2021-06-28] MEDS: GABAPENTIN 300 MG CAPSULE. PO SCH ×2 (09:46→21:00)
[2021-06-28] MEDS: LINAGLIPTIN 5 MG TABLET PO SCH (09:46)
[2021-06-28] MEDS: LOSARTAN 50 MG TABLET. PO SCH (09:46)
[2021-06-28] MEDS: INSULIN LISPRO 300 UNITS/3 ML VIAL. SQ SCH ×3 (09:49→17:00)
[2021-06-28 11:00] VITALS: BP 91/72
--- NOTE | 2021-06-28 13:49 | RAD ---
EXAM: CHEST 1 VIEW History: Shortness of breath, hypoxia COMPARISON: 06/26/2021 TECHNIQUE: Single portable radiograph of the chest FINDINGS: Low lung volumes and technique axial and pulmonary vascularity. Patchy airspace opacities identified in the bibasilar lungs likely atelectasis or infiltrates left cardiac pacer identified. IMPRESSION: Patchy airspace opacities identified in the bibasilar lungs likely atelectasis or infilt rates. Follow-up to resolution. Electronically signed by: Floyd Shaw MD (06/28/2021 1:47 PM) [id number]
[2021-06-28] MEDS ORDERED: FUROSEMIDE 20 MG/2 ML VIAL IVP ONE (14:00)
[2021-06-28] MEDS ORDERED: DIGOXIN IV 500 MCG/2 ML AMPUL. IV ONE (14:00)
[2021-06-28 15:23] VITALS: BP 134/41
[2021-06-28 19:00] VITALS: BP 119/54
[2021-06-28 20:05] LABS: FREE T4 0.87 ng/dL (0.76-1.46); THYROID STIM HORMONE (TSH) 1.514 uIU/mL (0.358-3.740)
[2021-06-28] MEDS: LORazepam 0.5 MG TABLET PO PRN (22:30)
--- NOTE | 2021-06-28 22:57 | PN ---
DATE: 06/28/2021 SUBJECTIVE: The patient is resting, slightly propped up in bed, slightly tachypneic. She apparently continues to have poorly controlled atrial fibrillation and she was hypoxic. Her chest x-ray showed that she probably has acute diastolic congestive heart failure. She is now on oral Cardizem. PHYSICAL EXAMINATION: GENERAL: When I examined her, she was pale. No jaundice, cyanosis. No lymphadenopathy. No thyromegaly. No jugular venous distention. No limb edema. VITAL SIGNS: Her heart rate was 105, blood pressure was 91/72, temperature was 98.7, respiratory rate 20 and oxygen saturation was 89% on room air, up to 94% on 4 liters of oxygen. HEAD, EYES, EARS, NOSE, AND THROAT: Normocephalic, atraumatic. NECK: Supple. HEART: Showed normal first and second heart sounds. No gallop or murmur. CHEST: Shows central trachea, equal bilateral expansion, air entry, vesicular breath sounds with bilateral basal crepitation posteriorly. I could not appreciate any rhonchi. ABDOMEN: Distended, soft, nontender. NEUROLOGIC: She was awake, alert, responding appropriately. All cranial nerves intact. She moves all extremities without difficulty. She has an indwelling Boles catheter. Her intake over the last 24 hours was 1240, no output was recorded. LABORATORY DATA: This morning showed a white cell count 7800, hemoglobin 10, hematocrit 34, MCV 99 and platelet count of 168,000. Her chemistry showed a serum sodium 141, potassium 5.4, chloride 109, bicarbonate 24, anion gap of 8, BUN 35, creatinine 2, estimated GFR was 23 mL per minute. Her glucose 175, calcium was 7.5. Total bilirubin, AST, ALT, alkaline phosphatase were normal. Total protein 6.1, albumin 3.2. Her urine culture done on 06/24 showed growth of more than 100,000 colony forming mL of Klebsiella pneumoniae, sensitive to ceftriaxone. ASSESSMENT: 1. Community-acquired pneumonia. 2. Probable sepsis and hypotension that is improving. 3. Acute on chronic kidney injury. Her creatinine came down from 2.8 to 2. 4. Urinary tract infection as her urine culture done on 06/24 grew Klebsiella pneumoniae, sensitive to ceftriaxone. 5. Other medical problems include, A. Atrial fibrillation with rapid ventricular response. B. Chronic diastolic congestive heart failure. C. Hypertension, although she is borderline hypotensive. D. Hyperlipidemia. E. Pulmonary hypertension. F. Anemia. G. Chronic kidney disease. H. Generalized osteoarthritis. I. Hyperthyroidism with multinodular goiter for which she is on methimazole. PLAN: My plan is to discontinue losartan and start her on Lasix 20 mg IV once and also add digoxin 500 mcg once. We will repeat her lab works again tomorrow and decide the further management accordingly. I discontinued also her IV fluids. SIMEON DR: Abbey TID: [id number]
[2021-06-29 05:00] VITALS: BP 147/72
[2021-06-29] MEDS: INSULIN LISPRO 300 UNITS/3 ML VIAL. SQ SCH ×3 (08:00→17:00)
--- NOTE | 2021-06-29 08:36 | PDOC ---
LAY MCBRIDE COMPLIANCE ASSOCIATE 06/29/21 0835: CARDIO Progress Notes Date & Time Date of Service DATE: 06/29/21 TIME: 08:35 Time of Evaluation 08:35 Subjective Notes confused. Denies any chest pain, SOA. Vitals Vitals Vital Signs Date Time Temp Pulse Resp B/P (MAP) Pulse Ox O2 Delivery O2 Flow Rate FiO2 06/29/21 05:00 98.0 102 20 147/72 (97) 95 Room Air 06/28/21 20:00 4.0 Weight Weight [ ] Input and Output I.O. Intake and Output 06/29/21 07:00 Intake Total 1463 ml Output Total 2550 ml Balance -1087 ml Intake Oral 240 ml IV Total 1223 ml Output Urine Total 2550 ml Laboratory Labs Laboratory Tests Test 06/27/21 11:55 06/27/21 15:15 06/27/21 17:01 06/28/21 00:16 Glucose (Fingerstick) 185 mg/dL (70-99) 160 mg/dL (70-99) 170 mg/dL (70-99) White Blood Count 6.6 x10^3/uL (4.0-11.0) Red Blood Count 3.44 x10^6/uL (3.50-5.40) Hemoglobin 10.6 g/dL (12.0-15.5) Hematocrit 33.7 % (36.0-47.0) Mean Corpuscular Volume 98 fL (79-100) Mean Corpuscular Hemoglobin 31 pg (25-35) Mean Corpuscular Hemoglobin Concent 32 g/dL (31-37) Red Cell Distribution Width 13.9 % (11.5-14.5) Platelet Count 166 x10^3/uL (140-400) Sodium Level 139 mmol/L (136-145) Potassium Level 5.1 mmol/L (3.5-5.1) Chloride Level 105 mmol/L (98-107) Carbon Dioxide Level 25 mmol/L (21-32) Anion Gap 9 (6-14) Blood Urea Nitrogen 40 mg/dL (7-20) Creatinine 2.5 mg/dL (0.6-1.0) Estimated GFR (Cockcroft-Gault) 18.3 BUN/Creatinine Ratio 16 (6-20) Glucose Level 176 mg/dL (70-99) Calcium Level 8.0 mg/dL (8.5-10.1) Total Bilirubin 0.3 mg/dL (0.2-1.0) Aspartate Amino Transf (AST/SGOT) 57 U/L (15-37) Alanine Aminotransferase (ALT/SGPT) 33 U/L (14-59) Alkaline Phosphatase 73 U/L (46-116) Total Protein 6.6 g/dL (6.4-8.2) Albumin 3.3 g/dL (3.4-5.0) Albumin/Globulin Ratio 1.0 (1.0-1.7) Test 06/28/21 06:25 06/28/21 07:27 06/28/21 11:54 06/28/21 16:49 White Blood Count 7.8 x10^3/uL (4.0-11.0) Red Blood Count 3.51 x10^6/uL (3.50-5.40) Hemoglobin 10.7 g/dL (12.0-15.5) Hematocrit 34.6 % (36.0-47.0) Mean Corpuscular Volume 99 fL (79-100) Mean Corpuscular Hemoglobin 31 pg (25-35) Mean Corpuscular Hemoglobin Concent 31 g/dL (31-37) Red Cell Distribution Width 14.1 % (11.5-14.5) Platelet Count 168 x10^3/uL (140-400) Neutrophils (%) (Auto) 62 % (31-73) Lymphocytes (%) (Auto) 23 % (24-48) Monocytes (%) (Auto) 13 % (0-9) Eosinophils (%) (Auto) 2 % (0-3) Basophils (%) (Auto) 1 % (0-3) Neutrophils # (Auto) 4.8 x10^3uL (1.8-7.7) Lymphocytes # (Auto) 1.8 x10^3/uL (1.0-4.8) Monocytes # (Auto) 1.0 x10^3/uL (0.0-1.1) Eosinophils # (Auto) 0.1 x10^3/uL (0.0-0.7) Basophils # (Auto) 0.1 x10^3/uL (0.0-0.2) Sodium Level 141 mmol/L (136-145) Potassium Level 5.4 mmol/L (3.5-5.1) Chloride Level 109 mmol/L (98-107) Carbon Dioxide Level 24 mmol/L (21-32) Anion Gap 8 (6-14) Blood Urea Nitrogen 35 mg/dL (7-20) Creatinine 2.0 mg/dL (0.6-1.0) Estimated GFR (Cockcroft-Gault) 23.7 BUN/Creatinine Ratio 18 (6-20) Glucose Level 175 mg/dL (70-99) Calcium Level 7.5 mg/dL (8.5-10.1) Total Bilirubin 0.2 mg/dL (0.2-1.0) Aspartate Amino Transf (AST/SGOT) 53 U/L (15-37) Alanine Aminotransferase (ALT/SGPT) 33 U/L (14-59) Alkaline Phosphatase 70 U/L (46-116) Total Protein 6.1 g/dL (6.4-8.2) Albumin 3.1 g/dL (3.4-5.0) Albumin/Globulin Ratio 1.0 (1.0-1.7) Thyroid Stimulating Hormone (TSH) 1.514 uIU/mL (0.358-3.740) Free Thyroxine 0.87 ng/dL (0.76-1.46) Thyroxine (T4) 6.0 ug/dL (4.5-12.0) Total Triiodothyronine 113 ng/dL (71-180) Glucose (Fingerstick) 168 mg/dL (70-99) 148 mg/dL (70-99) 131 mg/dL (70-99) Test 06/28/21 21:35 06/29/21 07:52 Glucose (Fingerstick) 121 mg/dL (70-99) 111 mg/dL (70-99) Physical Exams HEENT: Neck Supple W Full Motion Chest: Symmetric Lungs: Other (diminished, fine crackles ) Heart: irregularly irregular (AFIB; rate controlled ) Abdomen: Soft N/T, Other (obese) Extremities: Other (trace bilateral LE edema ) Neurology: alert, confused Assessment Assessment 1. Acute respiratory failure with CHF and possible PNA 2. Acute on chronic probable diastolic CHF; appears decompensated. Will give additional dose of Lasix today 3. PAFIB; rate controlled. Continue Cardizem for rate control. Eliquis for stroke prophylaxis. Follows with [facility] cardiology. 4. SSS s/p PPM (Medtronic). intermittent v-pacing 6. Hypertension; controlled 7. Hyperlipidemia; statin 8. ELIE on CKD, hyperkalemia; Cr, improved s/p IVFs. K remains elevated. ARB discontinued. 9. Diabetes, II 10. UTI; ongoing antibiotic therapy as per IM 11. Hyperthyroidism; on methimazole. 12. Dementia JAKE PATRICK MD 06/29/21 1352: CARDIO Progress Notes Assessment Assessment Patient seen and examined. Agree with [employer]YING CAN WORKER's assessment and plan. Agree with additional dose of Lasix for acute on chronic diastolic heart failure. Atrial fibrillation rate better controlled. Continue Eliquis for stroke prophylaxis. SSS s/p PPM clinically stable. Continue current treatment for pneumonia per IM. LAY MCBRIDE APRN Jun 29, 2021 08:35 JAKE PATRICK MD Jun 29, 2021 13:52
[2021-06-29 08:44] LABS: HEMOGLOBIN 11.2 g/dL (12.0-15.5); RED BLOOD COUNT 3.61 x10^6/uL (3.50-5.40); RED CELL DISTRIBUTION WIDTH 14.1 % (11.5-14.5)
[2021-06-29] MEDS: GABAPENTIN 300 MG CAPSULE. PO SCH ×2 (08:44→21:16)
[2021-06-29] MEDS: PANTOPRAZOLE 40 MG TABLET. PO SCH (08:44)
[2021-06-29] MEDS: LACTOBACILLUS RHAMNOSUS GG 1 CAPSULE. PO SCH ×2 (08:44→21:16)
[2021-06-29] MEDS: ATORVASTATIN CALCIUM 20 MG TABLET PO SCH (08:45)
[2021-06-29] MEDS: LINAGLIPTIN 5 MG TABLET PO SCH (08:45)
[2021-06-29] MEDS: APIXABAN 5 MG TABLET. PO SCH ×2 (08:45→21:16)
[2021-06-29] MEDS: MEMANTINE 5 MG TABLET. PO SCH ×2 (08:45→21:16)
[2021-06-29 09:16] LABS: ALBUMIN 3.1 g/dL (3.4-5.0); CALCIUM 8.1 mg/dL (8.5-10.1); CREATININE 1.4 mg/dL (0.6-1.0); GFR 35.7; POTASSIUM 5.2 mmol/L (3.5-5.1); TOTAL BILIRUBIN 0.4 mg/dL (0.2-1.0); TOTAL PROTEIN 6.1 g/dL (6.4-8.2)
[2021-06-29 12:13] VITALS: BP 170/86
[2021-06-29] MEDS ORDERED: FUROSEMIDE 40 MG/4 ML VIAL IVP ONE (12:15)
[2021-06-29 16:08] VITALS: BP 160/82
[2021-06-29] MEDS: ACETAMINOPHEN 325 MG TABLET PO PRN ×2 (18:18→19:15)
[2021-06-29 19:00] VITALS: BP 115/61
--- NOTE | 2021-06-29 22:24 | PN ---
DATE: 06/29/2021 SUBJECTIVE: The patient is resting, slightly propped up in bed, in no apparent distress. She is definitely more awake, alert, apparently was able to participate with physical therapy and walk. Her blood pressure is definitely much improved and her heart rate is much better controlled. PHYSICAL EXAMINATION: GENERAL: When I examined her this afternoon, she was somewhat pale, but not jaundiced or cyanosed, no lymphadenopathy, no thyromegaly, no jugular venous distention. No limb edema. VITAL SIGNS: Her heart rate was 69, blood pressure was 170/86, temperature was 98, respiratory rate 20, and oxygen saturation was 95% on 4 liters of oxygen. HEAD, EYES, EARS, NOSE, AND THROAT: Normocephalic, atraumatic. NECK: Supple. HEART: Normal first and second heart sounds, no gallop or murmur. CHEST: Shows central trachea, equal bilateral chest expansion, air entry, vesicular breath sounds. I could not appreciate any crepitation or rhonchi. ABDOMEN: Distended, soft, nontender. NEUROLOGIC: She was sleepy, but arousable. All cranial nerves intact. She moves extremities without difficulty. She has an indwelling Boles catheter. Her intake over the last 24 hours and output were incompletely recorded. LABORATORY DATA: This morning showed a white cell count of 7000, hemoglobin 11, hematocrit 36, MCV 100 and platelet count of 157,000. Her chemistry showed a serum sodium 143, potassium 5.2, chloride 109, bicarbonate 25, anion gap of 9, BUN 29, creatinine 1.4. Estimated GFR was 35 mL per minute. Her glucose 115, calcium was 8.1. Total bilirubin, AST, ALT, alkaline phosphatase were normal. Total protein 6.1, albumin was 3.1. Her TSH was normal at 1.57, free T4 was normal as well as total T4 and total T3, clinically euthyroid. ASSESSMENT: 1. Community-acquired pneumonia. 2. Probable sepsis and hypotension that is improving. 3. Acute on chronic kidney injury. Her creatinine came down from 2.8 to 1.4. 4. Urinary tract infection as her urine culture done on 06/24 grew Klebsiella pneumoniae, sensitive to ceftriaxone. 5. Other medical problems include: A. Atrial fibrillation, much better controlled. B. Chronic diastolic congestive heart failure, seems to be better compensated. C. Hypertension. The patient's blood pressure is much better now. She was hypotensive. D. Hyperlipidemia. E. Pulmonary hypertension. F. Anemia. G. Chronic kidney disease. H. Generalized osteoarthritis. I. Hyperthyroidism with multinodular goiter for which she is on methimazole. However, her TSH, T3, T4, free T4 are all within normal range. PLAN: To continue with all her current medications including ceftriaxone and continue with diltiazem to control the heart rate and apixaban for DVT prophylaxis. Continue with physical and occupational therapy. She might be able to go home with home health or [facility] facility tomorrow. ABIGAIL DR: Abbey TID: [id number]
[2021-06-29 23:00] VITALS: BP 121/54
[2021-06-30] MEDS: LORazepam 0.5 MG TABLET PO PRN ×2 (02:15→11:58)
--- NOTE | 2021-06-30 02:35 | NUR ---
Pt. agitated. Hollering for "Jason", Trying to get out of bed to go home. Pt. denies discomfort. Repositioned in bed. PO Ativan given.
[2021-06-30 05:00] VITALS: BP_SYST 163; BP_DIAS 68; BP_DIAS 8
[2021-06-30 07:27] LABS: BASO # 0.1 x10^3/uL (0.0-0.2); BASO % 1 % (0-3); EOS # 0.1 x10^3/uL (0.0-0.7); EOS % 1 % (0-3); HEMATOCRIT 32.9 % (36.0-47.0); HEMOGLOBIN 10.6 g/dL (12.0-15.5); LYMPH # 1.8 x10^3/uL (1.0-4.8); LYMPH % 24 % (24-48); MEAN CORPUSCULAR HEMOGLOBIN 31 pg (25-35); MEAN CORPUSCULAR HGB CONC 32 g/dL (31-37); MEAN CORPUSCULAR VOLUME 96 fL (79-100); MONO % 13 % (0-9); NEUT # 4.6 x10^3uL (1.8-7.7); NEUT % 62 % (31-73); PLATELET COUNT 165 x10^3/uL (140-400); RED BLOOD COUNT 3.43 x10^6/uL (3.50-5.40); RED CELL DISTRIBUTION WIDTH 13.3 % (11.5-14.5); WHITE BLOOD COUNT 7.5 x10^3/uL (4.0-11.0)
[2021-06-30 07:43] LABS: ALBUMIN 2.8 g/dL (3.4-5.0); ALBUMIN/GLOBULIN RATIO 0.8 (1.0-1.7); CALCIUM 8.2 mg/dL (8.5-10.1); CREATININE 1.2 mg/dL (0.6-1.0); GFR 42.7; TOTAL BILIRUBIN 0.6 mg/dL (0.2-1.0); TOTAL PROTEIN 6.2 g/dL (6.4-8.2)
[2021-06-30] MEDS: INSULIN LISPRO 300 UNITS/3 ML VIAL. SQ SCH ×3 (08:00→16:27)
--- NOTE | 2021-06-30 08:20 | PDOC ---
CARDIO Progress Notes Date & Time Date of Service DATE: 06/30/21 TIME: 08:16 Time of Evaluation 08:16 Subjective Notes reports not feeling well. Thinks she got shocked last night at home. Denies any chest pain, shortness of breath Vitals Vitals Vital Signs Date Time Temp Pulse Resp B/P (MAP) Pulse Ox O2 Delivery O2 Flow Rate FiO2 06/30/21 05:00 98.5 118 20 163/68 (99) 95 Nasal Cannula 4.0 Weight Weight [ ] Input and Output I.O. Intake and Output 06/30/21 07:00 Intake Total 1510 ml Output Total 3250 ml Balance -1740 ml Intake Oral 960 ml IV Total 50 ml Other 500 ml Output Urine Total 3250 ml # Bowel Movements 2 Laboratory Labs Laboratory Tests Test 06/28/21 11:54 06/28/21 15:27 06/28/21 16:49 06/28/21 21:35 Glucose (Fingerstick) 148 mg/dL (70-99) 131 mg/dL (70-99) 121 mg/dL (70-99) Procalcitonin < 0.10 ng/mL (0.00-0.10) Test 06/29/21 07:52 06/29/21 08:04 06/29/21 11:57 06/29/21 16:57 Glucose (Fingerstick) 111 mg/dL (70-99) 170 mg/dL (70-99) 113 mg/dL (70-99) White Blood Count 7.0 x10^3/uL (4.0-11.0) Red Blood Count 3.61 x10^6/uL (3.50-5.40) Hemoglobin 11.2 g/dL (12.0-15.5) Hematocrit 36.0 % (36.0-47.0) Mean Corpuscular Volume 100 fL (79-100) Mean Corpuscular Hemoglobin 31 pg (25-35) Mean Corpuscular Hemoglobin Concent 31 g/dL (31-37) Red Cell Distribution Width 14.1 % (11.5-14.5) Platelet Count 157 x10^3/uL (140-400) Sodium Level 143 mmol/L (136-145) Potassium Level 5.2 mmol/L (3.5-5.1) Chloride Level 109 mmol/L (98-107) Carbon Dioxide Level 25 mmol/L (21-32) Anion Gap 9 (6-14) Blood Urea Nitrogen 29 mg/dL (7-20) Creatinine 1.4 mg/dL (0.6-1.0) Estimated GFR (Cockcroft-Gault) 35.7 BUN/Creatinine Ratio 21 (6-20) Glucose Level 115 mg/dL (70-99) Calcium Level 8.1 mg/dL (8.5-10.1) Total Bilirubin 0.4 mg/dL (0.2-1.0) Aspartate Amino Transf (AST/SGOT) 45 U/L (15-37) Alanine Aminotransferase (ALT/SGPT) 33 U/L (14-59) Alkaline Phosphatase 77 U/L (46-116) Total Protein 6.1 g/dL (6.4-8.2) Albumin 3.1 g/dL (3.4-5.0) Albumin/Globulin Ratio 1.0 (1.0-1.7) Test 06/29/21 20:56 06/30/21 06:59 Glucose (Fingerstick) 126 mg/dL (70-99) White Blood Count 7.5 x10^3/uL (4.0-11.0) Red Blood Count 3.43 x10^6/uL (3.50-5.40) Hemoglobin 10.6 g/dL (12.0-15.5) Hematocrit 32.9 % (36.0-47.0) Mean Corpuscular Volume 96 fL (79-100) Mean Corpuscular Hemoglobin 31 pg (25-35) Mean Corpuscular Hemoglobin Concent 32 g/dL (31-37) Red Cell Distribution Width 13.3 % (11.5-14.5) Platelet Count 165 x10^3/uL (140-400) Neutrophils (%) (Auto) 62 % (31-73) Lymphocytes (%) (Auto) 24 % (24-48) Monocytes (%) (Auto) 13 % (0-9) Eosinophils (%) (Auto) 1 % (0-3) Basophils (%) (Auto) 1 % (0-3) Neutrophils # (Auto) 4.6 x10^3uL (1.8-7.7) Lymphocytes # (Auto) 1.8 x10^3/uL (1.0-4.8) Monocytes # (Auto) 1.0 x10^3/uL (0.0-1.1) Eosinophils # (Auto) 0.1 x10^3/uL (0.0-0.7) Basophils # (Auto) 0.1 x10^3/uL (0.0-0.2) Microbiology Micro Microbiology 06/26/21 Urine Culture - Final, Complete Physical Exams HEENT: Neck Supple W Full Motion Chest: Symmetric Lungs: Other (diminished) Heart: irregularly irregular (AFIB; rate controlled ) Abdomen: Soft N/T, Other (obese) Extremities: Other (trace bilateral LE edema ) Neurology: alert, follow commands, confused Assessment Assessment 1. Acute respiratory failure with CHF and possible PNA 2. Acute on chronic probable diastolic CHF; improved s/p Lasix. Will give additional dose of Lasix today 3. PAFIB; rate controlled. Continue Cardizem for rate control. Eliquis for stroke prophylaxis. Follows with [facility] cardiology. 4. SSS s/p PPM (Medtronic). intermittent v-pacing 6. Hypertension; controlled 7. Hyperlipidemia; statin 8. ELIE on CKD, hyperkalemia; Cr, improved 9. Diabetes, II 10. UTI; ongoing antibiotic therapy as per IM 11. Hyperthyroidism; on methimazole. 12. Encephalopathy with underlying dementia LAY MCBRIDE APRN Jun 30, 2021 08:20
[2021-06-30 08:27] LABS: POTASSIUM 4.3 mmol/L (3.5-5.1)
[2021-06-30] MEDS: PANTOPRAZOLE 40 MG TABLET. PO SCH (08:51)
[2021-06-30] MEDS: MEMANTINE 5 MG TABLET. PO SCH ×2 (08:51→21:14)
[2021-06-30] MEDS: LACTOBACILLUS RHAMNOSUS GG 1 CAPSULE. PO SCH ×2 (08:51→21:14)
[2021-06-30] MEDS: APIXABAN 5 MG TABLET. PO SCH ×2 (08:51→21:13)
[2021-06-30] MEDS: LINAGLIPTIN 5 MG TABLET PO SCH (08:51)
[2021-06-30] MEDS: GABAPENTIN 300 MG CAPSULE. PO SCH ×2 (08:51→21:14)
[2021-06-30] MEDS: ATORVASTATIN CALCIUM 20 MG TABLET PO SCH (08:51)
[2021-06-30] MEDS ORDERED: FUROSEMIDE 40 MG/4 ML VIAL IVP ONE (09:30)
[2021-06-30 11:46] VITALS: BP 149/83
[2021-06-30 14:52] VITALS: BP 139/82
[2021-06-30 19:52] VITALS: BP 144/68
--- NOTE | 2021-06-30 20:37 | PN ---
DATE: 06/30/2021 ATTENDING PHYSICIAN: Dr. Johnson. SUBJECTIVE: Still weak. She is alert. She is eating breakfast independently. Physical therapy recommendations are on the chart. OBJECTIVE FINDINGS: VITAL SIGNS: Blood pressure this morning is 140/80, her pulse is 98 and regular. She is afebrile. Oxygen saturation 94% on 3 liters by nasal cannula. HEENT: Head is without trauma. Pupils are reactive. Sclerae nonicteric. Oropharynx clear. NECK: Supple, no bruits. LUNGS: Shallow respirations. CARDIOVASCULAR: Showed regular heart tones. ABDOMEN: Soft. EXTREMITIES: Without edema. NEUROLOGIC: More awake, but still remains very weak. She is unable to bear weight independently. LABORATORY STUDIES: Noted. ASSESSMENT: 1. An 86-year-old female with community-acquired pneumonia. COVID has been ruled out. 2. Probable sepsis syndrome with hypotension, resolving. 3. Acute on chronic kidney injury. Creatinine is improved. 4. Urinary tract infection growing Klebsiella pneumoniae. 5. Paroxysmal atrial fibrillation. 6. Chronic diastolic heart failure. 7. Generalized debilitation. 8. Anemia of chronic disease. 9. Pulmonary hypertension. 10. Hyperlipidemia. 11. Generalized osteoarthritis. 12. Hypothyroidism due to multinodular goiter. PLAN: 1. Continue antibiotics. 2. Recs for physical therapy. 3. Home meds reviewed. 4. Diet as tolerated. 5. We should discuss discharge planning whether she needs a higher level of care at the rehab facility. TYLER DR: Floyd TID: [id number] CC: ALLEN KAMARA MD
[2021-06-30 23:46] VITALS: BP 143/65
[2021-07-01 05:53] VITALS: BP 128/78
[2021-07-01] MEDS: INSULIN LISPRO 300 UNITS/3 ML VIAL. SQ SCH ×3 (08:00→17:00)
[2021-07-01] MEDS: GABAPENTIN 300 MG CAPSULE. PO SCH ×2 (09:00→20:53)
[2021-07-01] MEDS: PANTOPRAZOLE 40 MG TABLET. PO SCH (09:00)
[2021-07-01] MEDS: APIXABAN 5 MG TABLET. PO SCH ×2 (09:00→20:54)
[2021-07-01] MEDS: LACTOBACILLUS RHAMNOSUS GG 1 CAPSULE. PO SCH ×2 (09:00→20:53)
[2021-07-01] MEDS: MEMANTINE 5 MG TABLET. PO SCH ×2 (09:00→20:53)
[2021-07-01] MEDS: ATORVASTATIN CALCIUM 20 MG TABLET PO SCH (09:00)
[2021-07-01] MEDS: LINAGLIPTIN 5 MG TABLET PO SCH (09:00)
[2021-07-01 10:26] VITALS: BP 142/78
[2021-07-01] MEDS: ACETAMINOPHEN 325 MG TABLET PO PRN (10:26)
[2021-07-01 15:46] VITALS: BP 120/68
[2021-07-01] MEDS: LORazepam 0.5 MG TABLET PO PRN (17:15)
[2021-07-01 19:57] VITALS: BP 135/63
--- NOTE | 2021-07-01 20:58 | PN ---
DATE: 07/01/2021 ATTENDING PHYSICIAN: Dr. Johnson. SUBJECTIVE: Alert, but pleasantly confused. She does not remember why she came here. OBJECTIVE FINDINGS: VITAL SIGNS: Blood pressure this morning is 128/70, pulse is 89 and regular. She is afebrile. Oxygen saturation 92% on 2 liters. We are in the process of weaning her down. HEENT: Head is without trauma. Pupils are reactive. Sclerae nonicteric. Oropharynx clear. NECK: Supple, no bruits. LUNGS: Shallow respirations. CARDIOVASCULAR: Showed regular heart tones. ABDOMEN: Soft. No edema. No guarding. EXTREMITIES: Showed trace edema. NEUROLOGIC FINDINGS: Pleasantly confused. She is less weak than yesterday. ASSESSMENT: 1. An 86-year-old female with community-acquired pneumonia. COVID has been ruled out. 2. Sepsis syndrome with hypotension, now resolved. 3. Acute on chronic kidney injury, improving. 4. Urinary tract infection growing Klebsiella pneumoniae. 5. Paroxysmal atrial fibrillation with controlled ventricular rate. 6. Chronic diastolic heart failure. 7. Generalized debilitation. 8. Anemia of chronic disease. 9. Pulmonary hypertension. 10. Hyperlipidemia. 11. Generalized osteoarthritis. 12. Hypothyroidism due to multinodular goiter. PLAN: 1. Continue antibiotics as ordered. 2. Recs per physical therapy. 3. Home meds reviewed. 4. Diet as tolerated. 5. Long discussion with the patient, she was lucid. She requested to be a DNR status, we will respect her wishes and place the order on the chart. ALMITA DR: Floyd TID: [id number] CC: ALLEN KAMARA MD
[2021-07-01 23:54] VITALS: BP 114/64
[2021-07-02] MEDS: LORazepam 0.5 MG TABLET PO PRN ×2 (03:50→09:40)
[2021-07-02 06:08] VITALS: BP 125/61
[2021-07-02] MEDS: INSULIN LISPRO 300 UNITS/3 ML VIAL. SQ SCH ×2 (08:00→12:00)
[2021-07-02] MEDS: GABAPENTIN 300 MG CAPSULE. PO SCH (09:37)
[2021-07-02] MEDS: MEMANTINE 5 MG TABLET. PO SCH (09:37)
[2021-07-02] MEDS: APIXABAN 5 MG TABLET. PO SCH (09:40)
[2021-07-02] MEDS: LACTOBACILLUS RHAMNOSUS GG 1 CAPSULE. PO SCH (09:41)
[2021-07-02] MEDS: LINAGLIPTIN 5 MG TABLET PO SCH (09:41)
[2021-07-02] MEDS: PANTOPRAZOLE 40 MG TABLET. PO SCH (09:41)
[2021-07-02] MEDS: ATORVASTATIN CALCIUM 20 MG TABLET PO SCH (09:41)
[2021-07-02] MEDS: ACETAMINOPHEN 325 MG TABLET PO PRN (09:44)
[2021-07-02 09:59] VITALS: BP 145/74
--- NOTE | 2021-07-02 12:54 | NUR ---
Patient was discharged to home. Patient discharge information was reviewed with the patients daughter Karissa. New prescriptions were reviewed with the daughter and the prescriptions were called into [facility]. Patient left the unit with all her belongings including her standing walker. Patient left the unit via wheelchair escorted by this RN and was transported home by her daughter in a private vehicle.
--- NOTE | 2021-07-02 18:20 | DS ---
DATE OF DISCHARGE: 07/02/2021 ATTENDING PHYSICIAN: Awa Johnson MD FINAL DISCHARGE DIAGNOSES: 1. An 86-year-old female with community-acquired pneumonia. COVID has been ruled out. 2. Sepsis syndrome with hypotension, resolved. 3. Twkrf-mt-ykdgjtd kidney injury, resolved. 4. Urinary tract infection, Klebsiella pneumoniae. 5. Paroxysmal atrial fibrillation with controlled ventricular rate. 6. Chronic diastolic heart failure, compensated. 7. Generalized debilitation. 8. Anemia of chronic disease. 9. Pulmonary hypertension. 10. Hyperlipidemia. 11. Hypothyroidism, on replacement. HISTORY AND PHYSICAL: This is an 86-year-old female admitted from the ED with increasing shortness of breath, hypotension and sepsis syndrome, consistent with community-acquired pneumonia. COVID has been ruled out. PHYSICAL EXAMINATION: Please see the dictated note. PERTINENT LABORATORY AND X-RAY STUDIES: Admission hemoglobin was 11.0 g/dL with a white count of 7600. Her electrolytes were within normal range. Blood sugars were drawn. Her chemistry panel on admission, creatinine was up to 1.6 mg/dL, repeated with hydration, it came down to 1.2 mg/dL. Electrolytes within normal range. Cardiac enzymes were nonischemic. BNP was 3400. COURSE IN THE HOSPITAL: The patient was admitted. She received 6 full days of intravenous antibiotics. She did well. Physical Therapy saw her in consultation. Her medications were simplified and a followup chemistry showed an improvement in her creatinine. Prior to discharge, Physical Therapy, was able to walk with assistance. She required 1:1 assistance. We offered rehabilitation, she declined. She wants to go home. She has a daughter who lives on the same block and a son who actually lives with her and they will provide care. Therefore, on the sixth hospital day, the patient was then discharged then with Eliquis 2.5 mg b.i.d., Lipitor 20 mg daily, diltiazem 240 daily; increased, Neurontin 300 mg b.i.d., Namenda 5 mg daily, methimazole 5 mg daily, omeprazole, and Januvia 50 mg daily. I recommended 7 more days of cephalexin 500 mg p.o. t.i.d., then stop, and then finally her Cardizem dose was increased to 240 mg daily with controlled ventricular rate. She is a DNR per advanced directive. She was discharged from our hospital in stable condition with explicit drug and followup care. Total discharge time was [address]: Floyd TID: [id number] CC: ALLEN KAMARA MD
== END 2021-07-02 12:30 | disposition home or self-care (01) | DRG 871 ==
LOC: ER 13:32 → ER HOLD 19:36 → ICU 23:04 → ER HOLD 23:04 → ICU 06-27 03:01 → 1 SOUTH 06-28 17:21
PROVIDERS: ADMIT Internal Medicine; ATTEND Internal Medicine
DX: A41.9 Sepsis, unspecified organism (principal); J18.9 Pneumonia, unspecified organism; I50.33 Acute on chronic diastolic (congestive) heart failure; J96.01 Acute respiratory failure with hypoxia; G93.40 Encephalopathy, unspecified; I13.0 Hypertensive heart and chronic kidney disease with heart failure and stage 1 through stage 4 chronic kidney disease, or unspecified chronic kidney disease; J44.0 Chronic obstructive pulmonary disease with (acute) lower respiratory infection; N17.9 Acute kidney failure, unspecified; N39.0 Urinary tract infection, site not specified; B96.1 Klebsiella pneumoniae [K. pneumoniae] as the cause of diseases classified elsewhere; D63.8 Anemia in other chronic diseases classified elsewhere; E03.9 Hypothyroidism, unspecified; E05.20 Thyrotoxicosis with toxic multinodular goiter without thyrotoxic crisis or storm; E11.22 Type 2 diabetes mellitus with diabetic chronic kidney disease; E78.00 Pure hypercholesterolemia, unspecified; E78.5 Hyperlipidemia, unspecified; E87.5 Hyperkalemia; F03.90 Unspecified dementia, unspecified severity, without behavioral disturbance, psychotic disturbance, mood disturbance, and anxiety; I25.10 Atherosclerotic heart disease of native coronary artery without angina pectoris; I27.20 Pulmonary hypertension, unspecified; I48.0 Paroxysmal atrial fibrillation; M15.9 Polyosteoarthritis, unspecified; N18.9 Chronic kidney disease, unspecified; Z20.822 Contact with and (suspected) exposure to COVID-19; Z66 Do not resuscitate; Z79.01 Long term (current) use of anticoagulants; Z79.84 Long term (current) use of oral hypoglycemic drugs; Z79.899 Other long term (current) drug therapy; Z87.891 Personal history of nicotine dependence; Z90.710 Acquired absence of both cervix and uterus; Z95.0 Presence of cardiac pacemaker; Z96.659 Presence of unspecified artificial knee joint; K21.9 Gastro-esophageal reflux disease without esophagitis; Z88.8 Allergy status to other drugs, medicaments and biological substances; I95.9 Hypotension, unspecified
CPT/HCPCS: 36415; 71045; 80053; 81001; 82553; 82947; 83605; 83690; 83735; 83880; 84145; 84436; 84439; 84443; 84480; 84484; 85025; 85027; 87077; 87086; 87186; 87426; 87428; 93005; 96361; 96365; 96367; C9803; J0456; J0696; J1160; J1630; J1815; J1940; J3490; J7050; U0003; 97110; 97116; 97530; 97535; 99291-25; J7030

== ENCOUNTER 2021-08-02 14:07 | Emergency (ER) | payer MEDICARE, OTHER ==
[~2021-08-02] VITALS: Ht 152.4 cm; Wt 90.2 kg
[~2021-08-02 14:07] MED LIST changes: +MEMA5TAB42 PO
--- NOTE | 2021-08-02 14:31 | PHYS DOC ---
Past History Past Medical History: A-Fib, CAD, Diabetes, GERD, High Cholesterol, Hypertension, Renal Disease Additional Past Medical Histor: PACEMAKER (MIKALA JOHNSON MD) Past Surgical History: Hysterectomy, Other Additional Past Surgical Histo: BACK (MIKALA JOHNSON MD) Smoking: Quit Greater Than 1 Year Alcohol Use: None Drug Use: None (MIKALA JOHNSON MD) General Adult EDM: Chief Complaint: SHORTNESS OF BREATH HPI: HPI: Patient is a 86-year-old female coming in for shortness of breath since waking up this morning. Patient feels that she cannot get a good complete breath. Denies any cough, fevers, chest pain or pressure. Patient was hospitalized for pneumonia about 1 month ago. Patient states that she just has not felt well for a while, contributes to age. States her lower extreme edema is slightly worse than baseline (MIKALA JOHNSON MD) Review of Systems: Review of Systems: All other systems within normal limits except for as noted in the HPI (MIKALA JOHNSON MD) Allergies: Allergies: Allergies Coded Allergies Type Severity Reaction Last Updated Verified Influenza Virus Vaccines Allergy Unknown 06/24/21 Yes (MIKALA JOHNSON MD) Physical Exam: PE: Constitutional: Well developed, well nourished, no acute distress, non-toxic appearance. [] HENT: Normocephalic, atraumatic, bilateral external ears normal, nose normal. [] Eyes: PERRLA, conjunctiva normal, no discharge. [] Neck: No rigidity, supple, no stridor. [] Cardiovascular: Regular rate and rhythm, brisk cap refill [] Lungs & Thorax: Non labored symmetric respirations, no tachypnea or respiratory distress. Crackles on right [] Abdomen: Soft, nondistended. Skin: Warm, dry, no erythema, no rash. [] Back: Unremarkable Extremities: No deformities, range of motion grossly intact, 1+ bilateral lower extremity edema [] Neurologic: Alert and oriented X 3, no focal deficits noted. [] Psychologic: Affect normal, judgement normal, mood normal. [] (MIKALA JOHNSON MD) EKG: EKG: [] Atrial fibrillation, heart rate 119 bpm, normal axis, no STEMI. (MIKALA JOHNSON MD) Radiology/Procedures: Radiology/Procedures: [address] [place] [address] IMAGING REPORT Signed PATIENT: AUDREY ABBOTT ACCOUNT: [id number] : 1935 LOCATION: ER AGE: 86 SEX: F EXAM STATUS: REG ER ORD. PHYSICIAN: MIKALA JOHNSON MD REASON: swelling PROCEDURE: VENOUS UPPER EXTREMITY LEFT History: Upper extremity swelling. Left upper extremity venous real time grayscale, color and spectral duplex ultrasound was performed. Comparison: None. The left upper extremity internal jugular, subclavian, axillary, brachial, radial and ulnar veins demonstrate anechoic lumina and appropriate phasic color Doppler flow. Cephalic and basilic veins are not identified due to overlying edema. Impression: No evidence of DVT in the left upper extremity venous system. Subcutaneous edema is identified. Electronically signed by: Rayshawn Knight MD (08/02/2021 4:16 PM) [facility] DICTATED AND SIGNED BY: RAYSHAWN KNIGHT MD DATE: 08/02/21 0737 CC: ALLEN KAMARA MD; MIKALA JOHNSON MD ~MTH0 0 [][address] [address] IMAGING REPORT Signed PATIENT: AUDREY ABBOTT ACCOUNT: [id number] : 1935 LOCATION: ER AGE: 86 SEX: F EXAM STATUS: REG ER ORD. PHYSICIAN: MIKALA JOHNSON MD REASON: dyspnea PROCEDURE: CHEST AP ONLY EXAM: Chest, single view. HISTORY: Dyspnea. COMPARISON: 06/28/2021 FINDINGS: A frontal view of the chest is obtained. There is increased diffuse interstitial infiltrate with partial lower lobe consolidation and small pleural fusions. There is a stable cardiac silhouette and cardiac pacemaker. There is a dorsal column stimulator leads overlying the thoracic spine. There is no pneumothorax. IMPRESSION: Increase in diffuse lower lobe predominant infiltrate and small pleural effusions. Electronically signed by: Lea Guido MD (08/02/2021 2:59 PM) [id number] DICTATED AND SIGNED BY: LEA GUIDO MD DATE: 08/02/21 1458 CC: ALLEN KAMARA MD; MIKALA JOHNSON MD ~MTH0 0 (MIKALA JOHNSON MD) Heart Score: C/O Chest Pain: No HEART Score for Chest Pain: HEART Score for Chest Pain Response (Comments) Value History Slighlty/Non-Suspicious 0 ECG Nonspecific Repolarizatio 1 Age > 65 2 Risk Factors >3 Risk Factors or Hx CAD 2 Troponin < Normal Limit 0 Total 5 Risk Factors: Risk Factors: DM, Current or recent (<one month) smoker, HTN, HLP, family history of CAD, obesity. Risk Scores: Score 0 - 3: 2.5% MACE over next 6 weeks - Discharge Home Score 4 - 6: 20.3% MACE over next 6 weeks - Admit for Clinical Observation Score 7 - 10: 72.7% MACE over next 6 weeks - Early Invasive Strategies (MIKALA JOHNSON MD) Course & Med Decision Making: Course & Med Decision Making Pertinent Labs and Imaging studies reviewed. (See chart for details) Patient has return of pneumonia. Discussed with hospitalist, Dr. Mcnally, who recommends transfer her to [place] since this infection has recurred it is a short period of time she might need a bronc. Report given to Dr. Mercado at [place]. Patient pending transport at shift change. [] (MIKALA JOHNSON MD) Course & Med Decision Making See [place] chart for details. (LEV WEST MD) Dragon Disclaimer: Dragon Disclaimer: This electronic medical record was generated, in whole or in part, using a voice recognition dictation system. (MIKALA JOHNSON MD) Departure Departure: Impression: Primary Impression: Atrial fibrillation Additional Impression: Pneumonia Disposition: 02 SHORT TERM HOSPITAL Condition: STABLE Referrals: ALLEN KAMARA MD (PCP) MIKALA JOHNSON MD Aug 02, 2021 14:31 LEV WEST MD Aug 07, 2021 10:31
--- NOTE | 2021-08-02 14:50 | EKG ---
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
--- NOTE | 2021-08-02 15:01 | RAD ---
EXAM: Chest, single view. HISTORY: Dyspnea. COMPARISON: 06/28/2021 FINDINGS: A frontal view of the chest is obtained. There is increased diffuse interstitial infiltrate with partial lower lobe consolidation and small pleural fusions. There is a stable cardiac silhouett e and cardiac pacemaker. There is a dorsal column stimulator leads overlying the thoracic spine. Ther e is no pneumothorax. IMPRESSION: Increase in diffuse lower lobe predominant infiltrate and small pleural effusions. Electronically signed by: Lea Lombardi MD (08/02/2021 2:59 PM) [id number]
[2021-08-02 15:35] LABS: BASO % 0 % (0-3); EOS # 0.1 x10^3/uL (0.0-0.7); EOS % 1 % (0-3); HEMATOCRIT 34.4 % (36.0-47.0); HEMOGLOBIN 10.8 g/dL (12.0-15.5); LYMPH # 1.1 x10^3/uL (1.0-4.8); LYMPH % 11 % (24-48); MEAN CORPUSCULAR HEMOGLOBIN 29 pg (25-35); MEAN CORPUSCULAR HGB CONC 31 g/dL (31-37); MEAN CORPUSCULAR VOLUME 93 fL (79-100); MONO # 1.2 x10^3/uL (0.0-1.1); MONO % 12 % (0-9); NEUT # 7.2 x10^3uL (1.8-7.7); NEUT % 75 % (31-73); PLATELET COUNT 207 x10^3/uL (140-400); RED BLOOD COUNT 3.69 x10^6/uL (3.50-5.40); RED CELL DISTRIBUTION WIDTH 14.7 % (11.5-14.5); WHITE BLOOD COUNT 9.6 x10^3/uL (4.0-11.0)
[2021-08-02 15:49] LABS: CALCIUM 9.2 mg/dL (8.5-10.1); CREATININE 1.6 mg/dL (0.6-1.0); GFR 30.6; POTASSIUM 4.4 mmol/L (3.5-5.1)
[2021-08-02 16:02] LABS: ALBUMIN 3.5 g/dL (3.4-5.0); MAGNESIUM 1.8 mg/dL (1.8-2.4); PHOSPHORUS 4.3 mg/dL (2.6-4.7); TOTAL BILIRUBIN 0.6 mg/dL (0.2-1.0); TOTAL PROTEIN 6.9 g/dL (6.4-8.2)
[2021-08-02 16:13] LABS: INFLUENZA A PATIENT NEGATIVE (NEGATIVE); INFLUENZA B PATIENT NEGATIVE (NEGATIVE)
--- NOTE | 2021-08-02 16:19 | RAD ---
History: Upper extremity swelling. Left upper extremity venous real time grayscale, color and spectral duplex ultrasound was performed. Comparison: None. The left upper extremity internal jugular, subclavian, axillary, brachial, radial and ulnar veins dem onstrate anechoic lumina and appropriate phasic color Doppler flow. Cephalic and basilic veins are not identified due to overlying edema. Impression: No evidence of DVT in the left upper extremity venous system. Subcutaneous edema is identified. Electronically signed by: Rayshawn Knight MD (08/02/2021 4:16 PM) [facility]
[2021-08-02] MEDS ORDERED: DEXAMETHASONE SOD PHOS 10 MG/ML VIAL. IVP ONE (17:15)
[2021-08-02] MEDS ORDERED: DOXYCYCLINE HYCLATE 100 MG in IV DEXTROSE 5% 100 ML IV ONE (17:15)
[2021-08-02] MEDS ORDERED: IV DEXTROSE 5% 100 ML IV ONE (17:49)
[2021-08-02] MEDS ORDERED: IV NORMAL SALINE 50ML 50 ML ONE (17:49)
[2021-08-02] MEDS ORDERED: cefTRIAXone SODIUM 1 GM VIAL ONE (17:50)
[2021-08-02] MEDS ORDERED: DOXYCYCLINE HYCLATE 100 MG VIAL IV ONE (17:50)
[2021-08-02 18:30] VITALS: BP 91/50
[2021-08-02 20:25] LABS: COLOR,URINE YELLOW
[2021-08-02 20:26] LABS: AMORPHOUS SEDIMENT,UR PRESENT /HPF; BACTERIA,URINE 0 /HPF (0-FEW); CLARITY,URINE HAZY; GLUCOSE,URINE NEG (NEG); NITRITE,URINE NEG (NEG); RBC,URINE OCC /HPF (0-2); SQUAMOUS EPITHELIAL CELL,UR FEW /LPF; UROBILINOGEN,URINE 0.2 mg/dL (0.2 mg/dL); WBC,URINE OCC /HPF (0-4)
== END 2021-08-03 00:04 | disposition short-term general hospital (02) ==
LOC: ER 14:07
DX: I48.91 Unspecified atrial fibrillation (principal); J18.9 Pneumonia, unspecified organism; I25.10 Atherosclerotic heart disease of native coronary artery without angina pectoris; E11.9 Type 2 diabetes mellitus without complications; K21.9 Gastro-esophageal reflux disease without esophagitis; E78.00 Pure hypercholesterolemia, unspecified; I10 Essential (primary) hypertension; N28.9 Disorder of kidney and ureter, unspecified; Z20.822 Contact with and (suspected) exposure to COVID-19; Z87.891 Personal history of nicotine dependence; Z95.0 Presence of cardiac pacemaker; Z88.7 Allergy status to serum and vaccine
CPT/HCPCS: 36415; 71045; 80053; 81001; 82803; 83735; 83880; 84100; 84484; 85025; 85379; 87040; 87428; 93005; 93971; 96365; 96375; 99285; C9803; J0696; J1100; J3490; U0003